=== PATIENT | male | born 1980 | race American Indian/Alaskan Native ===

== ENCOUNTER 2019-08-22 07:00 | Day surgery (SDC) | payer BC ==
[2019-08-22 07:59] LABS: Basophils % (Auto) 0.6 % (0.0-1.8); Eosinophils # (Auto) 0.4 K/mm3 (0.0-0.4); Eosinophils % (Auto) 5.7 % (0.0-4.3); Hematocrit 36.8 % (35.5-45.6); Hemoglobin 12.1 gm/dl (11.8-15.2); Lymphocytes # (Auto) 2.5 K/mm3 (1.2-5.4); Lymphocytes % (Auto) 40.1 % (13.4-35.0); Mean Corpuscular HGB Conc 33 % (32-34); Mean Corpuscular Volume 81 fl (84-94); Monocytes # (Auto) 0.6 K/mm3 (0.0-0.8); Monocytes % (Auto) 9.3 % (0.0-7.3); Platelet Count 244 K/mm3 (140-440); Red Blood Count 4.57 M/mm3 (3.65-5.03); Red Cell Distribution Width 15.3 % (13.2-15.2)
[2019-08-22 08:10] LABS: INR 1.21 (0.87-1.13)
[2019-08-22] MEDS: SODIUM CHLORIDE 0.9% 500 ML 500 ML IV SCH ×2 (08:10→08:53)
[2019-08-22 08:11] LABS: BUN/Creatinine Ratio 9; Blood Urea Nitrogen 8 mg/dL (9-20); Calcium 8.7 mg/dL (8.4-10.2); Hemolysis Index 9; Partial Thromboplastin Time 34.5 Sec. (24.2-36.6)
[2019-08-22] MEDS ORDERED: HEPARIN/NS 5000 UNIT/500ML 1,000 ML IR ONE (08:11)
[2019-08-22] MEDS ORDERED: NITROGLYCERIN SYRINGE 0 ML ONE (08:12)
[2019-08-22] MEDS ORDERED: SODIUM CHLORIDE 0.9% 500 ML 0 ML ONE (08:12)
[2019-08-22] MEDS: fentaNYL 100 MCG/2 ML INJ ONE ×6 (08:52→10:40)
[2019-08-22] MEDS: MIDAZOLAM 2 MG/2 ML INJ ONE ×8 (08:53→10:42)
[2019-08-22] MEDS: LIDOCAINE 1%/EPINEPHRINE 1:100,000 VIAL (20 ML) INFILTRATI ONE ×2 (08:53→09:03)
[2019-08-22] MEDS ORDERED: ONDANSETRON 4 MG/2 ML INJ ONE (09:14)
[2019-08-22] MEDS: HEPARIN 10,000 UNITS/10 ML VIAL ONE ×2 (09:20→10:16)
[2019-08-22] MEDS ORDERED: SODIUM CHLORIDE 0.9% 50 ML ONE (09:22)
[2019-08-22] MEDS ORDERED: WATER FOR INJ Sterile (PF) 20 ML ONE (09:22)
[2019-08-22] MEDS: ALTEPLASE 2 MG INJ ONE ×2 (09:29→09:42)
[2019-08-22] MEDS: HEPARIN/NS 5000 UNIT/500ML 500 ML IR ONE ×2 (09:30→09:42)
[2019-08-22] MEDS ORDERED: KETOROLAC 30 MG/1 ML INJ ONE (10:13)
[2019-08-22] MEDS ORDERED: diphenhydrAMINE 50 MG/ML VIAL ONE (10:30)
--- NOTE | 2019-08-22 10:56 | Short Stay Summary ---
Short Stay Documentation Date of service: 08/22/19 - History Principal diagnosis: Right venous thrombectomy/DVT H&P: obtained from office - Allergies and Medications Current Medications: Allergies No Known Allergies Allergy (Unverified 11/14/13 17:14) Home Medications Medication Instructions Recorded Confirmed Last Taken Type Cephalexin [Keflex] 500 mg PO BID #20 capsule 11/14/13 08/22/19 08/22/19 05:00 Rx Apixaban [Eliquis] 5 mg PO BID 08/22/19 08/22/19 08/22/19 05:00 History Montelukast [Singulair] 10 mg PO DAILY 08/22/19 08/22/19 08/22/19 05:00 History Oxycodone HCl/Acetaminophen 1 each PO Q6HR PRN 08/22/19 08/22/19 08/21/19 21:00 History [Percocet 7.5/325 mg] Active Medications Sodium Chloride (Nacl 0.9% 500 Ml) 500 mls @ 50 mls/hr IV DIRECT DAXA Last Admin: 08/22/19 08:53 Dose: 50 mls/hr Documented by: - Brief post op/procedure progress note Date of procedure: 08/22/19 Pre-op diagnosis: right iliofemoral DVT Post-op diagnosis: same Procedure: RLE thrombectomy IVC filter placement, stent placement Anesthesia: local Surgeon: HORACE STEEL Estimated blood loss: minimal Pathology: none Condition: stable - Disposition Condition at discharge: Good Disposition: DC-01 TO HOME OR SELFCARE Short Stay Discharge Plan Activity: advance as tolerated Weight Bearing Status: Weight Bear as Tolerated Diet: regular Wound: keep clean and dry, per your surgeon's advice Follow up with: ROMERO RIDDLE MD [Primary Care Provider] - 7 Days
--- NOTE | 2019-08-22 11:06 | Operative Report ---
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 Date: 08/22/2019 Procedure: Following an explanation of the risks, benefits and alternatives; written informed consent was obtained. The patient was brought to the anterior suite and placed in supine position on the examination table. Both groins in the patient's right neck were prepped and draped in the usual sterile fashion. Initial ultrasound evaluation of his right groin demonstrated a patent right common femoral vein. 1% lidocaine was used for anesthesia. Under ultrasound guidance, the right common femoral vein was cannulated with a 7 cm 18-gauge needle. A 0.035 guidewire was advanced centrally and to the proximal portion of the stent under fluoroscopy. The needle was removed and a micro-sheath placed. Contrast was injected through the micro-sheath to demonstrate the thrombus within the proximal and midportion of the previously placed stent. The guidewire was again reinserted and the micro-sheath exchanged for a 5 Israeli vascular sheath. A vertebral catheter was advanced over the guidewire and used to cannulate a path through the thrombus. The guidewire and catheter were advanced into the IVC. Contrast was injected to document appropriate positioning. The sheath was up sized over the guidewire to a 10 [place] sheath. Intravascular ultrasound was then performed. Imaged vessels include the IVC, right common iliac vein, right external iliac vein and right common femoral vein. The IVC is enlarged but appropriately sized for placement of a IVC filter. Thrombus is identified extending from the proximal end of the stent to the midportion of the stent. The stent previously placed maintains a diameter of approximately 14 mm throughout its course. The common femoral vein is patent. Pulse spray with 25 mg of tPA was followed by mechanical thrombectomy using AngioJet mechanical thrombectomy device. A total of 3 passes were made. Post thrombectomy imaging demonstrated resolution of the thrombus within the midportion of the stent. A patent channel is present into the IVC. Chronic appearing thrombus and narrowing secondary to the overlying artery are present within the proximal portion of the stent and barrow right common iliac vein. Balloon maceration was then performed using a 14 mm balloon. Following both balloon maceration and venoplasty of the stenotic area of right common iliac vein, a widely patent channel was identified into the IVC. Residual 60% stenosis remained however and a decision was made to place a stent across this lesion to maintain patency. The bifurcation was crossed using a C2 cobra catheter and contrast injected through both the sheath and the C2 cobra catheter simultaneously to identify the bifurcation. The bifurcation was marked. 16 mm x 120 mm [place] stent was advanced across the lesion and deployed. The stent was seated using the 14 mm balloon. Post stent placement imaging demonstrated brisk flow from the right common femoral vein into the IVC. The guidewires and sheaths were removed and hemostasis achieved using manual compression. A sterile compression dressing was applied. The patient tolerated the procedure well. There were no immediate postprocedure complications. Conscious sedation was performed in the guidance or radiologic nursing. Continuous cardiopulmonary monitoring was utilized. Impression:1) Venography of the right lower extremity from both the sheath and a catheter placed in the IVC, right common iliac vein, right external iliac vein and right common femoral vein demonstrating occlusion secondary to DVT of the mid and distal portions of a previously placed wall stent. There is approximately an 80% stenosis distal to the previously placed stent. 2) Mechanical and pharmacological thrombectomy with resolution of the thrombus but persistence of the stenosis of approximately 60% in the proximal right common iliac vein secondary to the overlying artery. 3) Treatment of the stenosis using venoplasty and stent placement with residual less than 10% stenosis.
[2019-08-22] MEDS ORDERED: oxyCODONE /ACETAMINOPHEN 5-325MG TAB PO ONE (11:26)
[2019-08-22 13:15] VITALS: BP 146/91
== END 2019-08-22 14:00 | disposition home or self-care (01) ==
LOC: CATHLABREC 07:00
PROVIDERS: ATTEND Radiology Diagnostic Radiology
DX: I82.511 Chronic embolism and thrombosis of right femoral vein (principal); I82.521 Chronic embolism and thrombosis of right iliac vein; G47.30 Sleep apnea, unspecified; M19.90 Unspecified osteoarthritis, unspecified site; Z98.890 Other specified postprocedural states; Z79.899 Other long term (current) drug therapy
CPT/HCPCS: 36415; 37187; 37191; 37238; 37252; 37253; 75820; 76937; 80048; 85025; 85610; 85730; 99156; 99157; C1725; C1753; C1757; C1769; C1876; C1880; C1894; J1200; J1644; J1885; J2250; J2405; J2997; J3010; J7040; 75822; Q9967

== ENCOUNTER 2020-04-02 07:24 | Inpatient (IN) | payer BC, OTHER ==
--- NOTE | 2020-04-02 09:43 | Vascular Lab Report ---
DUPLEX DOPPLER LOWER EXTREMITY VEINS, LEFT INDICATION: pain and swelling; hx of dvt. TECHNIQUE: Duplex doppler imaging was performed through the veins of the left lower extremity using venous compr ession and other maneuvers. COMPARISON: None available. FINDINGS: Common Femoral vein: Occlusive thrombus. Superficial Femoral vein: Occlusive thrombus. Popliteal vein: Occlusive thrombus. Calf veins: Occlusive thrombus. Additional findings: None. IMPRESSION: Acute appearing occlusive thrombus identified extending from the left common femoral vein through the deep veins of the thigh, popliteal vein and the posterior tibial vein. Signer Name: Chu Oneal MD Signed: 04/02/2020 9:38 AM Workstation Name: [id number]
[2020-04-02 09:58] LABS: Basophils % (Auto) 0.3 % (0.0-1.8); Eosinophils # (Auto) 0.3 K/mm3 (0.0-0.4); Eosinophils % (Auto) 5.4 % (0.0-4.3); Hematocrit 34.3 % (35.5-45.6); Hemoglobin 11.1 gm/dl (11.8-15.2); Lymphocytes # (Auto) 1.4 K/mm3 (1.2-5.4); Lymphocytes % (Auto) 23.1 % (13.4-35.0); Mean Corpuscular HGB Conc 32 % (32-34); Mean Corpuscular Volume 81 fl (84-94); Monocytes # (Auto) 0.5 K/mm3 (0.0-0.8); Monocytes % (Auto) 8.2 % (0.0-7.3); Platelet Count 232 K/mm3 (140-440); Red Blood Count 4.21 M/mm3 (3.65-5.03); Red Cell Distribution Width 15.7 % (13.2-15.2)
--- NOTE | 2020-04-02 10:02 | Emergency Department Report ---
ED General Adult HPI - General Chief complaint: Extremity Injury, Lower Stated complaint: LEFT LEG PAIN & SWELLING Time Seen by Provider: 04/02/20 08:41 Source: patient Mode of arrival: Ambulatory Limitations: No Limitations - History of Present Illness Initial comments: 39-year-old -English male patient presents with complaints of left thigh swelling and pain x5 days. Patient has history of for previous DVTs in his right leg and currently has a right IVC filter. Patient states he had a fall 10 days ago and was seen in an ED. He states at that time he did not have any pain in his left leg, however he has been doing a great deal of laying down and not walking due to having pain in his back. Patient currently follows with Dr. Jay, vascular surgery. He denies any chest pain, shortness of breath, cough, syncopal episodes, dizziness, history of PE, or redness to the leg. He rates his current pain as a 9/10 in severity and states it is constant and worsens with ambulation. Patient states he is currently on Eliquis and has prev iously been on Xarelto. - Related Data Home Medications Medication Instructions Recorded Confirmed Last Taken Apixaban [Eliquis] 5 mg PO BID 08/22/19 04/02/20 04/02/20 06:30 5 mg Metformin HCl [metFORMIN ER 1,000 mg PO DAILY 04/02/20 04/02/20 03/30/20 Osmotic] 1000 mg traMADoL [Ultram] 50 mg PO BID PRN 04/02/20 04/02/20 03/19/20 50 mg Previous Rx's Medication Instructions Recorded Last Taken Type Cephalexin [Keflex] 500 mg PO BID #20 capsule 11/14/13 04/02/20 06:30 Rx 500 mg Allergies Allergy/AdvReac Type Severity Reaction Status Date / Time No Known Allergies Allergy Unverified 11/14/13 17:14 ED Review of Systems ROS: Stated complaint: LEFT LEG PAIN & SWELLING Other details as noted in HPI Constitutional: denies: chills, diaphoresis, fever, malaise, weakness Eyes: denies: vision change Respiratory: denies: cough, shortness of breath, SOB with exertion, SOB at rest Cardiovascular: edema. denies: chest pain, palpitations, syncope Gastrointestinal: denies: abdominal pain Skin: denies: rash, lesions Neurological: denies: numbness ED Past Medical Hx - Past Medical History Previous Medical History?: Yes Hx Deep Vein Thrombosis: Yes Hx Arthritis: Yes (back and left hip) Hx HIV: No - Surgical History Past Surgical History?: Yes Additional Surgical History: back surgeries. DVT R leg x 2 - Social History Smoking Status: Never Smoker Substance Use Type: None - Medications Home Medications: Home Medications Medication Instructions Recorded Confirmed Last Taken Type Cephalexin [Keflex] 500 mg PO BID #20 capsule 11/14/13 04/02/20 04/02/20 06:30 Rx 500 mg Apixaban [Eliquis] 5 mg PO BID 08/22/19 04/02/20 04/02/20 06:30 History 5 mg Metformin HCl [metFORMIN ER 1,000 mg PO DAILY 04/02/20 04/02/20 03/30/20 History Osmotic] 1000 mg traMADoL [Ultram] 50 mg PO BID PRN 04/02/20 04/02/20 03/19/20 History 50 mg ED Physical Exam - General Limitations: No Limitations General appearance: alert, in no apparent distress, obese - Head Head exam: Present: atraumatic, normocephalic - Eye Eye exam: Present: normal appearance. Absent: scleral icterus - Neck Neck exam: Present: normal inspection - Respiratory Respiratory exam: Present: normal lung sounds bilaterally. Absent: respiratory distress - Cardiovascular Cardiovascular Exam: Present: regular rate, normal rhythm. Absent: systolic murmur, diastolic murmur, rubs, gallop - GI/Abdominal GI/Abdominal exam: Present: soft. Absent: tenderness - Extremities Exam Extremities exam: Present: full ROM, tenderness (Swelling and tenderness noted to left thigh and left lower leg without overlying erythema) - Back Exam Back exam: Present: full ROM - Neurological Exam Neurological exam: Present: alert, oriented X3 - Psychiatric Psychiatric exam: Present: normal affect, normal mood - Skin Skin exam: Present: warm, dry, intact, normal color. Absent: rash ED Course Vital Signs 04/02/20 04/02/20 04/02/20 07:30 09:57 12:08 Temperature 97.8 F 98.0 F Pulse Rate 111 H 89 82 Respiratory 17 16 Rate Blood Pressure 149/92 Blood Pressure 123/87 [Left] O2 Sat by Pulse 100 100 98 Oximetry 04/02/20 04/02/20 04/02/20 14:00 14:15 14:30 Temperature 97.5 F L Pulse Rate 89 87 82 Respiratory 14 18 18 Rate Blood Pressure 144/87 131/72 140/82 Blood Pressure [Left] O2 Sat by Pulse 100 96 99 Oximetry 04/02/20 14:45 Temperature Pulse Rate 96 H Respiratory 19 Rate Blood Pressure 135/75 Blood Pressure [Left] O2 Sat by Pulse 99 Oximetry ED Medical Decision Making - Lab Data Result diagrams: 04/02/20 11:28 04/02/20 11:28 Lab Results 04/02/20 04/02/20 04/02/20 Range/Units 09:43 09:43 09:43 WBC 6.1 (4.5-11.0) K/mm3 RBC 4.21 (3.65-5.03) M/mm3 Hgb 11.1 L (11.8-15.2) gm/dl Hct 34.3 L (35.5-45.6) % MCV 81 L (84-94) fl MCH 26 L (28-32) pg MCHC 32 (32-34) % RDW 15.7 H (13.2-15.2) % Plt Count 232 (140-440) K/mm3 Lymph % (Auto) 23.1 (13.4-35.0) % [place] % (Auto) 8.2 H (0.0-7.3) % Eos % (Auto) 5.4 H (0.0-4.3) % Baso % (Auto) 0.3 (0.0-1.8) % Lymph # 1.4 (1.2-5.4) K/mm3 [place] # 0.5 (0.0-0.8) K/mm3 Eos # 0.3 (0.0-0.4) K/mm3 Baso # 0.0 (0.0-0.1) K/mm3 Seg Neutrophils % 63.0 (40.0-70.0) % Seg Neutrophils # 3.9 (1.8-7.7) K/mm3 PT 17.2 H (12.2-14.9) Sec. INR 1.37 H (0.87-1.13) APTT 32.2 (24.2-36.6) Sec. Fibrinogen (211-480) mg/dl Sodium 137 (137-145) mmol/L Potassium 4.7 (3.6-5.0) mmol/L Chloride 101.7 (98-107) mmol/L Carbon Dioxide 22 (22-30) mmol/L Anion Gap 18 mmol/L BUN 17 (9-20) mg/dL Creatinine 1.0 (0.8-1.3) mg/dL Estimated GFR > 60 ml/min BUN/Creatinine Ratio 17 % Glucose 131 H (75-100) mg/dL Calcium 9.0 (8.4-10.2) mg/dL Total Bilirubin 0.40 (0.1-1.2) mg/dL AST 35 (5-40) units/L ALT 25 (7-56) units/L Alkaline Phosphatase 97 (35-129) units/L Total Protein 7.7 (6.3-8.2) g/dL Albumin 3.7 L (3.9-5) g/dL Albumin/Globulin Ratio 0.9 % Urine Color (Yellow) Urine Turbidity (Clear) Urine pH (5.0-7.0) Ur Specific [place] (1.003-1.030) Urine Protein (Negative) mg/dL Urine Glucose (UA) (Negative) mg/dL Urine Ketones (Negative) mg/dL Urine Blood (Negative) Urine Nitrite (Negative) Urine Bilirubin (Negative) Urine Urobilinogen (<2.0) mg/dL Ur Leukocyte Esterase (Negative) Urine WBC (Auto) (0.0-6.0) /HPF Urine RBC (Auto) (0.0-6.0) /HPF U Epithel Cells (Auto) (0-13.0) /HPF Urine Mucus /HPF 04/02/20 04/02/20 04/02/20 Range/Units 10:00 11:28 11:28 WBC 5.7 (4.5-11.0) K/mm3 RBC 4.20 (3.65-5.03) M/mm3 Hgb 10.9 L (11.8-15.2) gm/dl Hct 34.1 L (35.5-45.6) % MCV 81 L (84-94) fl MCH 26 L (28-32) pg MCHC 32 (32-34) % RDW 15.5 H (13.2-15.2) % Plt Count 236 (140-440) K/mm3 Lymph % (Auto) 26.1 (13.4-35.0) % [place] % (Auto) 7.2 (0.0-7.3) % Eos % (Auto) 5.7 H (0.0-4.3) % Baso % (Auto) 0.4 (0.0-1.8) % Lymph # 1.5 (1.2-5.4) K/mm3 [place] # 0.4 (0.0-0.8) K/mm3 Eos # 0.3 (0.0-0.4) K/mm3 Baso # 0.0 (0.0-0.1) K/mm3 Seg Neutrophils % 60.6 (40.0-70.0) % Seg Neutrophils # 3.4 (1.8-7.7) K/mm3 PT (12.2-14.9) Sec. INR (0.87-1.13) APTT (24.2-36.6) Sec. Fibrinogen 422 (211-480) mg/dl Sodium (137-145) mmol/L Potassium (3.6-5.0) mmol/L Chloride (98-107) mmol/L Carbon Dioxide (22-30) mmol/L Anion Gap mmol/L BUN (9-20) mg/dL Creatinine (0.8-1.3) mg/dL Estimated GFR ml/min BUN/Creatinine Ratio % Glucose (75-100) mg/dL Calcium (8.4-10.2) mg/dL Total Bilirubin (0.1-1.2) mg/dL AST (5-40) units/L ALT (7-56) units/L Alkaline Phosphatase (35-129) units/L Total Protein (6.3-8.2) g/dL Albumin (3.9-5) g/dL Albumin/Globulin Ratio % Urine Color Yellow (Yellow) Urine Turbidity Clear (Clear) Urine pH 5.0 (5.0-7.0) Ur Specific [place] 1.040 H (1.003-1.030) Urine Protein 30 mg/dl (Negative) mg/dL Urine Glucose (UA) Neg (Negative) mg/dL Urine Ketones Neg (Negative) mg/dL Urine Blood Neg (Negative) Urine Nitrite Neg (Negative) Urine Bilirubin Neg (Negative) Urine Urobilinogen 2.0 (<2.0) mg/dL Ur Leukocyte Esterase Neg (Negative) Urine WBC (Auto) 2.0 (0.0-6.0) /HPF Urine RBC (Auto) 3.0 (0.0-6.0) /HPF U Epithel Cells (Auto) < 1.0 (0-13.0) /HPF Urine Mucus 3+ /HPF 04/02/20 04/02/20 Range/Units 11:28 11:28 WBC (4.5-11.0) K/mm3 RBC (3.65-5.03) M/mm3 Hgb (11.8-15.2) gm/dl Hct (35.5-45.6) % MCV (84-94) fl MCH (28-32) pg MCHC (32-34) % RDW (13.2-15.2) % Plt Count (140-440) K/mm3 Lymph % (Auto) (13.4-35.0) % [place] % (Auto) (0.0-7.3) % Eos % (Auto) (0.0-4.3) % Baso % (Auto) (0.0-1.8) % Lymph # (1.2-5.4) K/mm3 [place] # (0.0-0.8) K/mm3 Eos # (0.0-0.4) K/mm3 Baso # (0.0-0.1) K/mm3 Seg Neutrophils % (40.0-70.0) % Seg Neutrophils # (1.8-7.7) K/mm3 PT 17.6 H (12.2-14.9) Sec. INR 1.42 H (0.87-1.13) APTT 32.7 (24.2-36.6) Sec. Fibrinogen (211-480) mg/dl Sodium 137 (137-145) mmol/L Potassium 4.4 (3.6-5.0) mmol/L Chloride 101.6 (98-107) mmol/L Carbon Dioxide 24 (22-30) mmol/L Anion Gap 16 mmol/L BUN 16 (9-20) mg/dL Creatinine 0.9 (0.8-1.3) mg/dL Estimated GFR > 60 ml/min BUN/Creatinine Ratio 18 % Glucose 115 H (75-100) mg/dL Calcium 8.8 (8.4-10.2) mg/dL Total Bilirubin (0.1-1.2) mg/dL AST (5-40) units/L ALT (7-56) units/L Alkaline Phosphatase (35-129) units/L Total Protein (6.3-8.2) g/dL Albumin (3.9-5) g/dL Albumin/Globulin Ratio % Urine Color (Yellow) Urine Turbidity (Clear) Urine pH (5.0-7.0) Ur Specific [place] (1.003-1.030) Urine Protein (Negative) mg/dL Urine Glucose (UA) (Negative) mg/dL Urine Ketones (Negative) mg/dL Urine Blood (Negative) Urine Nitrite (Negative) Urine Bilirubin (Negative) Urine Urobilinogen (<2.0) mg/dL Ur Leukocyte Esterase (Negative) Urine WBC (Auto) (0.0-6.0) /HPF Urine RBC (Auto) (0.0-6.0) /HPF U Epithel Cells (Auto) (0-13.0) /HPF Urine Mucus /HPF - Radiology Data Radiology results: report reviewed DUPLEX DOPPLER LOWER EXTREMITY VEINS, LEFT INDICATION: pain and swelling; hx of dvt. TECHNIQUE: Duplex doppler imaging was performed through the veins of the left lower extremity using venous compression and other maneuvers. COMPARISON: None available. FINDINGS: Common Femoral vein: Occlusive thrombus. Superficial Femoral vein: Occlusive thrombus. Popliteal vein: Occlusive thrombus. Calf veins: Occlusive thrombus. Additional findings: None. IMPRESSION: Acute appearing occlusive thrombus identified extending from the left common femoral vein through the deep veins of the thigh, popliteal vein and the posterior tibial vein. - Medical Decision Making Patient here with left leg swelling and pain. History of 4 prior DVTs with a right IVC filter in place. Ultrasound showed occlusive DVT of the femoral, superficial femoral, popliteal, and calf veins. Consulted with patient's vascu lar surgeon, Dr. Jay-Heparin drip without bolus and admission to hospital. Initial heart rate noted to be 111, however patient denies any shortness of breath, cough, chest pain, syncopal episodes, dizziness, or history of PE. Heart rate in the 90s on repeat and oxygen saturation remains normal. Patient admitted to hospital medicine. Critical care attestation.: If time is entered above; I have spent that time in minutes in the direct care of this critically ill patient, excluding procedure time. ED Disposition Clinical Impression: Deep vein thrombosis (DVT) of left lower extremity Qualifiers: Affected thrombotic vein of extremity: femoral Chronicity: acute Qualified Code(s): I82.412 - Acute embolism and thrombosis of left femoral vein DVT, popliteal, acute Qualifiers: Laterality: left Qualified Code(s): I82.432 - Acute embolism and thrombosis of left popliteal vein Calf DVT (deep venous thrombosis) Qualifiers: Chronicity: acute Laterality: left Qualified Code(s): I82.4Z2 - Acute embolism and thrombosis of unspecified deep veins of left distal lower extremity Disposition: DC-01 TO HOME OR SELFCARE Is pt being admited?: No Condition: Stable
--- NOTE | 2020-04-02 10:05 | XRay Report ---
LEFT FEMUR 4 VIEW(S) INDICATION / CLINICAL INFORMATION: pain and swelling after fall COMPARISON: None available. FINDINGS: BONES / JOINT(S): Abnormal morphology of the acetabulum and femoral head suggesting congenital hip dy splasia. Advanced osteoarthritic changes are present. No definite cortical disruption or linear lucen cy to suggest acute fracture. No evidence of dislocation or significant effusion. SOFT TISSUES: No significant abnormality. ADDITIONAL FINDINGS: None. IMPRESSION: 1. 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 No acute fracture or dislocation. Signer Name: Luke Otto MD Signed: 04/02/2020 10:01 AM Workstation Name: [id number]
[2020-04-02 10:09] LABS: INR 1.37 (0.87-1.13)
[2020-04-02 10:10] LABS: Partial Thromboplastin Time 32.2 Sec. (24.2-36.6)
[2020-04-02 10:23] LABS: Alanine Aminotransferase 25 units/L (7-56); Albumin 3.7 g/dL (3.9-5); BUN/Creatinine Ratio 17; Blood Urea Nitrogen 17 mg/dL (9-20); Hemolysis Index 10
[2020-04-02 10:26] LABS: Bilirubin,Urine NEG (Negative); Blood,Urine NEG (Negative); Color,Urine Yellow (Yellow); Mucus,Urine 3+ /HPF
--- NOTE | 2020-04-02 10:44 | Consultation ---
History of Present Illness - Reason for Consult Consult date: 04/02/20 DVT left leg - History of Present Illness Patient with a history of multiple DVTs on the right leg who had previously undergone stenting at an outside facility pair. The patient developed recurrent DVT which resulted in a reconstruction of his right side. Currently, his right leg feels normal. The patient describes an episode of dehydration approximately 1 week ago followed by left leg pain. His left leg is swollen and painful to the touch. Ultrasound demonstrates extensive left iliofemoral DVT. Past History Past Medical History: DVT Medications and Allergies Allergies Allergy/AdvReac Type Severity Reaction Status Date / Time No Known Allergies Allergy Unverified 11/14/13 17:14 Home Medications Medication Instructions Recorded Confirmed Last Taken Type Cephalexin [Keflex] 500 mg PO BID #20 capsule 11/14/13 08/22/19 08/22/19 05:00 Rx Apixaban [Eliquis] 5 mg PO BID 08/22/19 08/22/19 08/22/19 05:00 History Montelukast [Singulair] 10 mg PO DAILY 08/22/19 08/22/19 08/22/19 05:00 History Oxycodone HCl/Acetaminophen 1 each PO Q6HR PRN 08/22/19 08/22/19 08/21/19 21:00 History [Percocet 7.5/325 mg] oxyCODONE /ACETAMINOPHEN [Percocet 1 tab PO Q6HR PRN #25 tablet 08/22/19 Unknown Rx 5/325] Review of Systems All systems: negative Exam - Constitutional Vitals: Temp Pulse Resp BP Pulse Ox 97.8 F 111 H 17 149/92 100 04/02/20 07:30 04/02/20 07:30 04/02/20 07:30 04/02/20 07:30 04/02/20 07:30 General appearance: Present: no acute distress - EENT Eyes: Present: EOM intact ENT: hearing intact - Neck Neck: Present: supple, normal ROM - Respiratory Respiratory effort: normal - Extremities Extremities: abnormal Extremity abnormal: edema - Abdominal General gastrointestinal: Present: deferred Male genitourinary: Present: deferred - Rectal Rectal Exam: deferred - Psychiatric Psychiatric: appropriate mood/affect, cooperative Results - Labs CBC & Chem 7: 04/02/20 09:43 04/02/20 09:43 Labs: Abnormal lab results 04/02/20 04/02/20 04/02/20 Range/Units 09:43 09:43 09:43 Hgb 11.1 L (11.8-15.2) gm/dl Hct 34.3 L (35.5-45.6) % MCV 81 L (84-94) fl MCH 26 L (28-32) pg RDW 15.7 H (13.2-15.2) % [place] % (Auto) 8.2 H (0.0-7.3) % Eos % (Auto) 5.4 H (0.0-4.3) % PT 17.2 H (12.2-14.9) Sec. INR 1.37 H (0.87-1.13) Glucose 131 H (75-100) mg/dL Albumin 3.7 L (3.9-5) g/dL Ur Specific [place] (1.003-1.030) 04/02/20 Range/Units 10:00 Hgb (11.8-15.2) gm/dl Hct (35.5-45.6) % MCV (84-94) fl MCH (28-32) pg RDW (13.2-15.2) % [place] % (Auto) (0.0-7.3) % Eos % (Auto) (0.0-4.3) % PT (12.2-14.9) Sec. INR (0.87-1.13) Glucose (75-100) mg/dL Albumin (3.9-5) g/dL Ur Specific [place] 1.040 H (1.003-1.030) - Imaging and Cardiology Venous US: image reviewed Assessment and Plan Patient will be brought to the [facility] for placement of an EKOS thrombolytics catheter from a left popliteal vein approach. He will need to be initiated on heparin drip.
[2020-04-02] MEDS ORDERED: MORPHINE 4 MG/1 ML INJ IV ONE ×2 (10:52→14:01)
[2020-04-02] MEDS ORDERED: ONDANSETRON 4 MG/2 ML INJ IV ONE (10:52)
[2020-04-02] MEDS ORDERED: HEPARIN/ 0.45% NACL DRIP 25,000 UNIT/500 ML BAG IV SCH (11:00)
[2020-04-02] MEDS ORDERED: HYDROcodone/ACETAMINOPHEN 5-325 MG TAB PO PRN (11:11)
[2020-04-02] MEDS ORDERED: ONDANSETRON 4 MG/2 ML INJ IV PRN (11:11)
[2020-04-02] MEDS ORDERED: MORPHINE 2 MG/1 ML INJ IV PRN (11:11)
[2020-04-02] MEDS ORDERED: SODIUM CHLORIDE 0.9% 1000 ML 1,000 ML IV SCH (11:15)
[2020-04-02] MEDS ORDERED: SODIUM CHLORIDE 0.9% 1000 ML 1,000 ML EKOSCLUMEN SCH (11:15)
[2020-04-02] MEDS ORDERED: SODIUM CHLORIDE 0.9% 1000 ML 1,000 ML SHEATH SCH (11:15)
[2020-04-02 11:49] LABS: Basophils % (Auto) 0.4 % (0.0-1.8); Eosinophils # (Auto) 0.3 K/mm3 (0.0-0.4); Eosinophils % (Auto) 5.7 % (0.0-4.3); Hematocrit 34.1 % (35.5-45.6); Hemoglobin 10.9 gm/dl (11.8-15.2); Lymphocytes # (Auto) 1.5 K/mm3 (1.2-5.4); Lymphocytes % (Auto) 26.1 % (13.4-35.0); Mean Corpuscular HGB Conc 32 % (32-34); Mean Corpuscular Volume 81 fl (84-94); Monocytes # (Auto) 0.4 K/mm3 (0.0-0.8); Monocytes % (Auto) 7.2 % (0.0-7.3); Platelet Count 236 K/mm3 (140-440); Red Cell Distribution Width 15.5 % (13.2-15.2)
[2020-04-02] MEDS ORDERED: ALTEPLASE 20 MG in SODIUM CHLORIDE 0.9% 500 ML 500 ML EKOSDLUMEN SCH (12:00)
[2020-04-02] MEDS ORDERED: HEPARIN/ 0.45% NACL DRIP 25,000 UNIT/500 ML BAG SHEATH SCH (12:00)
[2020-04-02 12:01] LABS: INR 1.42 (0.87-1.13)
[2020-04-02 12:02] LABS: Partial Thromboplastin Time 32.7 Sec. (24.2-36.6)
[2020-04-02 12:04] LABS: BUN/Creatinine Ratio 18; Blood Urea Nitrogen 16 mg/dL (9-20); Calcium 8.8 mg/dL (8.4-10.2); Hemolysis Index 6
[2020-04-02] MEDS ORDERED: MIDAZOLAM 2 MG/2 ML INJ ONE (12:14)
[2020-04-02] MEDS ORDERED: fentaNYL 100 MCG/2 ML INJ ONE (12:14)
[2020-04-02] MEDS ORDERED: HEPARIN/ 0.45% NACL DRIP 0 UNIT/0 ML BAG ONE (12:15)
[2020-04-02] MEDS ORDERED: HEPARIN 10,000 UNITS/10 ML VIAL ONE (12:16)
[2020-04-02] MEDS ORDERED: SODIUM CHLORIDE 0.9% 1000 ML 1,000 ML ONE (12:16)
[2020-04-02] MEDS ORDERED: WATER FOR INJ Sterile (PF) 10 ML ONE (12:16)
[2020-04-02] MEDS ORDERED: LIDOCAINE (2%) 20 MG/1 ML VIAL 20 ML MDV INFILTRATI ONE (12:16)
[2020-04-02] MEDS ORDERED: ALTEPLASE 2 MG INJ ONE (12:16)
[2020-04-02] MEDS ORDERED: HEPARIN/NS 5000 UNIT/500ML 1,000 ML IR ONE (12:16)
[2020-04-02] MEDS ORDERED: oxyCODONE /ACETAMINOPHEN 5-325MG TAB PO PRN (12:53)
--- NOTE | 2020-04-02 12:54 | History and Physical Report ---
History of Present Illness Chief complaint: My leg is swollen History of present illness: 39 YO Male with Morbid Obesity, Obesity Hypoventilation Syndrome, DVT S/P IVC filter Placement currently on therapeutic anticoagulation with LINA Mcdonald DJD presents to ED for evaluation. Patient states that he has experienced worsening swelling and pain in his left leg over the past 5 days with persistently worsening symptoms over the same timeframe. Patient transported to [facility] for further care and evaluation of the aforementioned symptoms. Patient seen and evaluated in the emergency department. Lab and imaging studies reviewed. Patient underwent bilateral lower extremity duplex and was found to have extensive left leg deep vein thrombosis. Vascular surgery consulted. Patient taken urgently to [facility] [employer] [facility] for surgical intervention. Patient was found to have extensive disease which was not amenable to lytic therapy. Patient is pending transfer to higher level of care for further surgical intervention. Patient initiated on anticoagulation and admitted to ICU as per vascular surgery request. Patient denies fever, chills, chest pain, palpitations, productive cough, recent ill contacts. No prior admission for review. All medication at the time of admission has been reconciled. Patient transferred to [facility] has been authorized however patient is awaiting bed authorization at this time. Past History Past Medical History: DVT (See HPI), other (See HPI) Past Surgical History: Other (IVC filter placement) Social history: . denies: smoking, alcohol abuse, prescription drug abuse Family history: diabetes, hypertension Medications and Allergies Allergies Allergy/AdvReac Type Severity Reaction Status Date / Time No Known Allergies Allergy Unverified 11/14/13 17:14 Home Medications Medication Instructions Recorded Confirmed Last Taken Type Cephalexin [Keflex] 500 mg PO BID #20 capsule 11/14/13 04/02/20 04/02/20 06:30 Rx 500 mg Apixaban [Eliquis] 5 mg PO BID 08/22/19 04/02/20 04/02/20 06:30 History 5 mg Metformin HCl [metFORMIN ER 1,000 mg PO DAILY 04/02/20 04/02/20 03/30/20 History Osmotic] 1000 mg traMADoL [Ultram] 50 mg PO BID PRN 04/02/20 04/02/20 03/19/20 History 50 mg Active Meds: Active Medications Acetaminophen/Hydrocodone Bitart ([place] 5/325) 2 each PO Q6H PRN PRN Reason: Pain, Moderate (4-6) Sodium Chloride (Nacl 0.9% 1000 Ml) 1,000 mls @ 30 mls/hr IV DIRECT DAXA Alteplase, Recombinant 20 mg/ (Sodium Chloride) 500 mls @ 25 mls/hr EKOSDLUMEN DIRECT DAXA Sodium Chloride (Nacl 0.9% 1000 Ml) 1,000 mls @ 30 mls/hr SHEATH DIRECT DAXA Sodium Chloride (Nacl 0.9% 1000 Ml) 1,000 mls @ 35 mls/hr EKOSCLUMEN DIRECT DAXA Heparin Sodium/Sodium Chloride (Heparin/ 0.45% Nacl-25,000 Unit/500 Ml) 25,000 unit in 500 mls @ 10 mls/hr SHEATH DIRECT DAXA; Protocol Morphine Sulfate (Morphine) 4 mg IV Q4H PRN PRN Reason: Pain , Severe (7-10) Morphine Sulfate (Morphine) 2 mg IV Q4H PRN PRN Reason: Pain, Moderate (4-6) Ondansetron HCl (Zofran) 4 mg IV Q8H PRN PRN Reason: Nausea And Vomiting Review of Systems Constitutional: no weight loss, no weight gain, no fever, no chills Ears, nose, mouth and throat: no ear pain, no ear discharge, no tinnitis, no nose pain, no nasal congestion Cardiovascular: no chest pain, no palpitations, no edema, no lightheadedness Respiratory: no cough, no cough with sputum, no excessive sputum, no shortness of breath Gastrointestinal: no abdominal pain, no nausea, no diarrhea Genitourinary Male: no hematuria, no flank pain, no discharge, no urinary frequency, no nocturia Musculoskeletal: other (Left leg pain and swelling), no neck stiffness, no neck pain, no arm numbness/tingling Integumentary: no rash, no pruritis, no redness, no wounds, no jaundice Neurological: no head injury, no weakness, no numbness, no tingling, no syncope Psychiatric: no anxiety, no sleep disturbances, no hypersomnia Endocrine: no heat intolerance, no excessive thirst, no polyuria Hematologic/Lymphatic: no easy bruising, no lymphadenopathy, no lymphedema Allergic/Immunologic: no urticaria Exam - Constitutional Vitals: Temp Pulse Resp BP Pulse Ox 98.0 F 82 16 123/87 98 04/02/20 12:08 04/02/20 12:08 04/02/20 12:08 04/02/20 12:08 04/02/20 12:08 General appearance: Present: mild distress - EENT Eyes: Present: PERRL ENT: hearing intact, clear oral mucosa - Neck Neck: Present: supple, normal ROM - Respiratory Respiratory effort: normal Respiratory: bilateral: CTA - Cardiovascular Heart Sounds: Present: S1 & S2. Absent: rub, click - Extremities Extremities: pulses symmetrical Extremity abnormal: edema Peripheral Pulses: within normal limits - Abdominal General gastrointestinal: Present: soft, non-tender, non-distended, normal bowel sounds Male genitourinary: Present: normal - Integumentary Integumentary: Present: clear, warm, dry - Musculoskeletal Musculoskeletal: gait normal, strength equal bilaterally - Psychiatric Psychiatric: appropriate mood/affect, intact judgment & insight - Neurologic Neurologic: CNII-XII intact, moves all extremities Results - Labs CBC & Chem 7: 04/02/20 11:28 04/02/20 11:28 Labs: Abnormal lab results 04/02/20 04/02/20 04/02/20 Range/Units 09:43 09:43 09:43 Hgb 11.1 L (11.8-15.2) gm/dl Hct 34.3 L (35.5-45.6) % MCV 81 L (84-94) fl MCH 26 L (28-32) pg RDW 15.7 H (13.2-15.2) % [place] % (Auto) 8.2 H (0.0-7.3) % Eos % (Auto) 5.4 H (0.0-4.3) % PT 17.2 H (12.2-14.9) Sec. INR 1.37 H (0.87-1.13) Glucose 131 H (75-100) mg/dL Albumin 3.7 L (3.9-5) g/dL Ur Specific [place] (1.003-1.030) 04/02/20 04/02/20 04/02/20 Range/Units 10:00 11:28 11:28 Hgb 10.9 L (11.8-15.2) gm/dl Hct 34.1 L (35.5-45.6) % MCV 81 L (84-94) fl MCH 26 L (28-32) pg RDW 15.5 H (13.2-15.2) % [place] % (Auto) (0.0-7.3) % Eos % (Auto) 5.7 H (0.0-4.3) % PT 17.6 H (12.2-14.9) Sec. INR 1.42 H (0.87-1.13) Glucose (75-100) mg/dL Albumin (3.9-5) g/dL Ur Specific [place] 1.040 H (1.003-1.030) 04/02/20 Range/Units 11:28 Hgb (11.8-15.2) gm/dl Hct (35.5-45.6) % MCV (84-94) fl MCH (28-32) pg RDW (13.2-15.2) % [place] % (Auto) (0.0-7.3) % Eos % (Auto) (0.0-4.3) % PT (12.2-14.9) Sec. INR (0.87-1.13) Glucose 115 H (75-100) mg/dL Albumin (3.9-5) g/dL Ur Specific [place] (1.003-1.030) Assessment and Plan - Patient Problems (1) DVT (deep venous thrombosis) Current Visit: Yes Status: Acute Qualifiers: Laterality: left Plan to address problem: Therapeutic anticoagulation, vascular surgery consulted, patient is pending transfer to [facility] for vascular surgical intervention. (2) Obesity hypoventilation syndrome Current Visit: Yes Status: Acute Plan to address problem: Supplemental oxygen, pulse oximetry, nebulizer therapy, noninvasive positive pressure ventilation as clinically indicated. (3) DVT prophylaxis Current Visit: Yes Status: Acute Plan to address problem: SCD to bilateral lower extremities while in bed, continue therapeutic anticoagulation
[2020-04-02] MEDS ORDERED: MORPHINE 4 MG/1 ML INJ ONE (14:01)
[2020-04-02] MEDS ORDERED: HEPARIN/ 0.45% NACL DRIP 25,000 UNIT/500 ML BAG ONE (14:15)
--- NOTE | 2020-04-02 14:17 | Operative Report ---
Operative Report Operative Report: Exam: Left lower extremity venogram, venogram of the IVC Clinical indication: Patient with a history of multiple prior DVTs who presents today with worsening left leg swelling. Ultrasound evaluation of his left leg demonstrates extensive DVT extending from the iliac veins into the posterior tibial vein. Date: 04/02/2020 Procedure: Following an explanation of the risks, benefits and alternatives; written informed consent was obtained. The patient was brought to the angiographic suite and placed in prone position on the examination table. Initial ultrasound evaluation of his popliteal fossa demonstrated compressibility of the popliteal vein. The patient's popliteal fossa on the left was prepped and draped in the usual sterile fashion. 1% lidocaine was used for anesthesia. Under ultrasound guidance, the left popliteal vein was cannulated with a 7 cm 18-gauge needle. A 0.035 guidewire was advanced centrally. The needle was removed and a 6 [place] sheath placed. Contrast was injected which demonstrates thrombus extending from the distal femoral vein proximally. A 4 [place] vertebral catheter was advanced over the guidewire. Together the guidewire and catheter were advanced centrally. Contrast was injected at multiple locations which demonstrates occlusive thrombus throughout the femoral vein, common femoral vein, external iliac vein and common iliac vein. The vertebral catheter and guidewire were then advanced into the IVC. Contrast was injected which demonstrates thrombus extending to the level of the filter. There is contrast staining above the filter. The catheter and guidewire were then advanced through the filter to the right atrium. Contrast was injected as the catheter withdrawn. This demonstrates thrombus extending above the filter to approximately 4 cm below the right atrium. At the level of the renal veins, there appears to be inflow from the renal veins creating some mobility of the thrombus. At this point, the catheters and guidewires were removed. The sheath was removed and hemostasis achieved using manual compression. A sterile dressing was applied. The patient tolerated the procedure well. There were no immediate postprocedure complications. A minimal amount of conscious sedation was performed under the guidance of radiologic nursing. Continuous cardiopulmonary monitoring was utilized. Impression: Venogram of the IVC and left lower venogram demonstrating thrombus extending from 4 cm below the right atrium to the distal femoral vein. The thrombus in the IVC is above the level of the filter. Given the degree of thrombus, and the size of the patient's quileute IVC, would be unable to place a suprarenal IVC filter. Deferred placement of a thrombolytics catheter secondary to the mobility the thrombus and morbidity associated with migration. The patient will need to be transferred for higher level of care. Discussed this wi th patient and he is agreeable to transfer. At the conclusion of the procedure, the patient returned to his baseline condition complaining only of left leg pain and swelling.
--- NOTE | 2020-04-02 16:09 | Event Note ---
Date: 04/02/[address] Andres Vincent at [facility]. [facility] has no beds available for transfer. Spoke with Dr. Charli Hardy at [facility]. [facility] is willing to accept the patient in transfer however, is waiting on a bed to open. The patient was sent from [facility] to the ICU awaiting transfer. The patient will need to be transferred for higher level of care.
[2020-04-02] MEDS: MONTELUKAST 10 MG TAB PO SCH (19:04)
[2020-04-02] MEDS: MORPHINE 4 MG/1 ML INJ IV PRN (20:01)
[2020-04-02 22:32] LABS: INR 1.13 (0.87-1.13)
[2020-04-02 23:06] LABS: Partial Thromboplastin Time 99.3 Sec. (24.2-36.6)
[2020-04-03] MEDS: HEPARIN/ 0.45% NACL DRIP 25,000 UNIT/500 ML BAG IV SCH ×2 (00:07→12:38)
[2020-04-03] MEDS: MORPHINE 4 MG/1 ML INJ IV PRN ×3 (02:12→16:51)
--- NOTE | 2020-04-03 12:20 | Consultation ---
History of Present Illness Consult date: 04/03/20 Requesting physician: FRANCHESCA HOWE Reason for consult: other (VTE with extensive DVT's) History of present illness: PULMONARY/CCM CONSULT NOTE (Full dictation # [id number]) Please see dictated notes for full details Past History Past Medical History: DVT (See HPI), other (See HPI) Past Surgical History: Other (IVC filter placement) Social history: . denies: smoking, alcohol abuse, prescription drug abuse Family history: diabetes, hypertension Medications and Allergies Allergies Allergy/AdvReac Type Severity Reaction Status Date / Time No Known Allergies Allergy Unverified 11/14/13 17:14 Home Medications Medication Instructions Recorded Confirmed Last Taken Type Cephalexin [Keflex] 500 mg PO BID #20 capsule 11/14/13 04/02/20 04/02/20 06:30 Rx 500 mg Apixaban [Eliquis] 5 mg PO BID 08/22/19 04/02/20 04/02/20 06:30 History 5 mg Metformin HCl [metFORMIN ER 1,000 mg PO DAILY 04/02/20 04/02/20 03/30/20 History Osmotic] 1000 mg traMADoL [Ultram] 50 mg PO BID PRN 04/02/20 04/02/20 03/19/20 History 50 mg Active Meds: Active Medications Acetaminophen/Hydrocodone Bitart ([place] 5/325) 2 each PO Q6H PRN PRN Reason: Pain, Moderate (4-6) Last Admin: 04/02/20 17:03 Dose: 2 each Documented by: Sodium Chloride (Nacl 0.9% 1000 Ml) 1,000 mls @ 30 mls/hr IV DIRECT DAXA Last Admin: 04/03/20 10:32 Dose: 30 mls/hr Documented by: Heparin Sodium/Sodium Chloride (Heparin/ 0.45% Nacl-25,000 Unit/500 Ml) 25,000 unit in 500 mls @ 30 mls/hr IV TITR DAXA; Protocol Last Titration: 04/03/20 10:00 Dose: 0 units/hr, 0 mls/hr Documented by: Montelukast Sodium (Singulair) 10 mg PO QPM DAXA Last Admin: 04/02/20 19:04 Dose: 10 mg Documented by: Morphine Sulfate (Morphine) 4 mg IV Q4H PRN PRN Reason: Pain , Severe (7-10) Last Admin: 04/03/20 08:40 Dose: 4 mg Documented by: Morphine Sulfate (Morphine) 2 mg IV Q4H PRN PRN Reason: Pain, Moderate (4-6) Ondansetron HCl (Zofran) 4 mg IV Q8H PRN PRN Reason: Nausea And Vomiting Oxycodone/Acetaminophen (Percocet 5/325) 1 tab PO Q6HR PRN PRN Reason: PAIN Sodium Chloride (Sodium Chloride Flush Syringe 10 Ml) 10 ml IV BID DAXA Last Admin: 04/03/20 00:12 Dose: 10 ml Documented by: Sodium Chloride (Sodium Chloride Flush Syringe 10 Ml) 10 ml IV PRN PRN PRN Reason: LINE FLUSH Physical Examination Vital signs: Vital Signs Temp Pulse Resp BP Pulse Ox 97.8 F 111 H 17 149/92 100 04/02/20 07:30 04/02/20 07:30 04/02/20 07:30 04/02/20 07:30 04/02/20 07:30 Results - Laboratory Findings CBC and BMP: 04/02/20 11:28 04/02/20 11:28 PT/INR, D-dimer PT 14.7 Sec. (12.2-14.9) 04/02/20 21:07 INR 1.13 (0.87-1.13) 04/02/20 21:07 Abnormal lab findings: Abnormal Labs 04/02/20 04/02/20 04/02/20 09:43 09:43 09:43 Hgb 11.1 L Hct 34.3 L MCV 81 L MCH 26 L RDW 15.7 H [place] % (Auto) 8.2 H Eos % (Auto) 5.4 H PT 17.2 H INR 1.37 H APTT Heparin Anti-Xa Level Glucose 131 H Albumin 3.7 L Ur Specific [place] 04/02/20 04/02/20 04/02/20 10:00 11:28 11:28 Hgb 10.9 L Hct 34.1 L MCV 81 L MCH 26 L RDW 15.5 H [place] % (Auto) Eos % (Auto) 5.7 H PT 17.6 H INR 1.42 H APTT Heparin Anti-Xa Level Glucose Albumin Ur Specific [place] 1.040 H 04/02/20 04/02/20 04/02/20 11:28 21:07 21:07 Hgb Hct MCV MCH RDW [place] % (Auto) Eos % (Auto) PT INR APTT 99.3 H* Heparin Anti-Xa Level 1.53 H Glucose 115 H Albumin Ur Specific [place] 04/03/20 07:59 Hgb Hct MCV MCH RDW [place] % (Auto) Eos % (Auto) PT INR APTT Heparin Anti-Xa Level 0.97 H Glucose Albumin Ur Specific [place]
--- NOTE | 2020-04-03 14:58 | Consultation ---
PULMONARY CRITICAL CARE CONSULTATION NOTE CONSULTING PHYSICIAN: Dr. Rosendo Escamilla. REASON FOR CONSULTATION: Extensive venous thromboembolic disorder, status post unsuccessful thrombolytic therapy and needing transfer to a higher level of care. CHIEF COMPLAINT AND HISTORY OF PRESENT ILLNESS: The patient is a 39-year-old male, morbidly obese. He has been dealing with venous thromboembolic disease for the past few years he tells me. He had an IVC filter placed about a year ago. He came in to the emergency room after he had been found to have increasing swelling of his left leg as well as pain over the preceding 5 days. He is on therapeutic anticoagulation with Eliquis and has been compliant with his medication. He got bilateral lower extremity Dopplers and was found to have extensive left leg deep venous thrombosis, which were new. Vascular Surgery took the patient to the flue dust laborer for surgical intervention. However, he had extensive disease, not amenable to lytic therapy and he was brought back to the Intensive Care Unit on therapeutic IV heparin with plans to transfer him to another outside hospital for a higher level of care. When I stopped by to see him, he was resting in bed, lying flat as directed. He denied chest pains. He denied cough or hemoptysis. He admits to history of obstructive sleep apnea and is compliant with use of his BiPAP machine. This really is as much of the history of presentation as I have. Now with regards to tobacco use or abuse, he denies. PAST MEDICAL HISTORY: Morbid obesity, obesity hypoventilation syndrome, obstructive sleep apnea and venous thromboembolic disease as well as osteoarthritis. PAST SURGICAL HISTORY: He has had an IVC filter placement. MEDICATIONS: He was on at the time I stopped by to see him were reviewed, pertinent medications include the following: Heparin was going at 1300 units per hour, I believe, Singulair 10 mg p.o. at bedtime, Percocet 5/325 one tablet p.o. q. 6 hours p.r.n. pain. ALLERGIES: No known drug allergies. DIET: Morbidly obese. Denies acute weight loss or gain in the preceding few weeks to months. FAMILY AND SOCIAL HISTORY: Lives in the community. Denies alcohol, tobacco, or illicit drug use or abuse. There is a family history of diabetes and hypertension. REVIEW OF SYSTEMS: No loss of consciousness. No new onset seizures. No new onset focal weakness. No gross hematochezia or melena. No gross hematuria, no hematemesis. No hemoptysis. He denies palpitations. He denies heat or cold intolerance. Denies polydipsia or polyuria. Complete 13-system review of systems obtained. Pertinent positives and/or negatives as in body of history above, otherwise they are noncontributory. PHYSICAL EXAMINATION: VITAL SIGNS: At presentation, he was afebrile, temperature 97.8 degrees Fahrenheit, pulse of 111, respiratory rate of 17, blood pressure 149/92, O2 sats 100%. At the time I saw him, that was on room air. GENERAL: He is a young, morbidly obese male. Normocephalic, atraumatic, talking to me with full sentences without significant increased respiratory effort at rest. HEAD, EYES, EARS, NOSE AND THROAT: Anicteric. No conjunctival erythema. Oropharynx was moist. It looks like a Mallampati #3 oropharynx. No gross jugular venous distention, no thyromegaly. He does have a large neck circumference. Grossly, there were no palpable lymph nodes in the supraclavicular or submandibular lymph node chains. LUNGS: Auscultation of both lung humphreys significant for good bilateral air movement, lungs are clear bilaterally. HEART: Heart sounds 1 and 2 are heard at the time of my evaluation, regular rate and rhythm without overt rubs or murmurs. ABDOMEN: Soft, full, protuberant. Bowel sounds are positive, nontender, no palpable hepatosplenomegaly. EXTREMITIES: Without overt digital clubbing or cyanosis. He has about 1+ pedal edema to the right lower extremity and 2+ pitting pedal edema to the left lower extremity. Pedal pulses are 2+ bilaterally. The extremities are warm to touch. NEUROLOGIC: Pupils equal, round, about 4 mm, reactive to light. Extraocular muscle movements are intact. He moves all 4 extremities spontaneously. SKIN: Poor turgor in the lower extremities, in particular, he has stasis dermatitis type rash to both lower extremities. No overt cellulitis in the areas examined by me. Please see the wound care nurse's note for full description of his skin. PSYCHIATRIC: His mood was appropriate. Affect was normal. LABORATORY DATA: From my review are as follows: Admission white cell count 5700, hemoglobin 10.9, hematocrit 34.1, platelet count 236. No manual differential. INR 1.42 at presentation. Serum sodium was 137, potassium 4.4, chloride 102, bicarbonate 24, BUN 16, creatinine 0.9, glucose 115. Liver function tests essentially within normal limits. Urinalysis was unremarkable. Most recent heparin anti-Xa level is 0.97. He had lower extremity Dopplers as mentioned in the body of the history above that shows extensive left lower extremity DVT. He also had left femoral x-rays for pain and swelling after a fall, shows congenital hip dysplasia with advanced osteoarthritis changes, no acute fracture. ASSESSMENT: 1. Acute on chronic venous thromboembolic disorder with new extensive left lower extremity deep venous thromboses. 2. Obesity hypoventilation syndrome. 3. Obstructive sleep apnea. 4. Morbid obesity. 5. Obesity hypoventilation syndrome. 6. Osteoarthritis. PLAN: We will keep him on full anticoagulation with IV heparin drip. Calls have been placed to [facility] as well as [facility] system. I believe he is on a waiting list. Oxygen will be deployed as necessary to keep O2 sats greater than or equal to about 92%. Aspiration precautions will be maintained. Weight loss has been counseled. I will put him on empiric BiPAP therapy. I will go with 18/10 and a backup rate of 10. He is trying to call home to see what his CPAP numbers are at home. He is not sure if it is CPAP or BiPAP, especially with him being on full anticoagulation. I will put him on GI prophylaxis. Flu and pneumonia vaccination will be addressed per protocol. Thank you very much for the consult. We will follow along and make further recommendations as picture progresses/becomes clearer. JOB# [id number]/NTS
[2020-04-03] MEDS: MONTELUKAST 10 MG TAB PO SCH (17:03)
--- NOTE | 2020-04-03 17:10 | Discharge Summary ---
Providers - Providers Date of Admission: 04/02/20 12:50 Attending physician: FRANCHESCA HOWE 04/02/20 10:49 Consult to Physician [CONS] Stat Comment: Consulting Provider: HORACE STEEL Physician Instructions: Reason For Exam: DVT Primary care physician: ROMERO RIDDLE MD Hospitalization Condition: Stable Hospital course: 39 YO Male with Morbid Obesity, Obesity Hypoventilation Syndrome, DVT S/P IVC filter Placement currently on therapeutic anticoagulation with Eliquis, OA, DJD presented to ED for evaluation. Patient stated that he had experienced worsening swelling and pain in his left leg over the previous 5 days with persistently worsening symptoms over the same timeframe. Patient transported to [facility] for further care and evaluation of the aforementioned symptoms. Patient seen and evaluated in the emergency department. Lab and imaging studies reviewed. Patient underwent bilateral lower extremity duplex studies and was found to have extensive left leg deep vein thrombosis. Vascular surgery consulted. Patient taken urgently to [facility] for surgical intervention. Patient was found to have extensive disease which was not amenable to lytic therapy. Preparations for patient transfer to higher level of care was initiated by the interventional radiology service. Patient was subsequently initiated on anticoagulation and admitted to ICU as per vascular surgery request. Patient denied fever, chills, chest pain, palpitations, productive cough, recent ill contacts. Patient transfer to [facility] has been authorized and bed is available. Patient seen and evaluated prior to discharge but no significant new physical exam findings. Patient is deemed stable for transfer at this time. 35 minutes dedicated to patient discharge and coordination of care. Disposition: [id number]/[id number] ANOTHER TYPE HLTHCARE - Discharge Diagnoses (1) DVT (deep venous thrombosis) Status: Acute Qualifiers: Laterality: left (2) Obesity hypoventilation syndrome Status: Acute (3) DVT prophylaxis Status: Acute Core Measure Documentation - Palliative Care Palliative Care/ Comfort Measures: Not Applicable - Core Measures Any of the following diagnoses?: DVT/PE - VTE Discharge Requirements Deep Vein Thrombosis/Pulmonary Embolism Present on Admission: Yes Has pt received <5 days of overlap therapy or INR<2.0: No Anticoagulant overlap therapy prescribed at discharge: No Contraindication No Overlap Therapy order at DC: Not Indicated (Patient on therapeutic anticoagulation at time of discharge. Patient discharged for surgical intervention) Exam - Constitutional Vitals: Temp Pulse Resp BP Pulse Ox 98.7 F 74 13 119/68 99 04/03/20 03:38 04/03/20 14:00 04/03/20 16:51 04/03/20 14:00 04/03/20 14:00 General appearance: Present: no acute distress, well-nourished - EENT Eyes: Present: PERRL ENT: hearing intact, clear oral mucosa - Neck Neck: Present: supple, normal ROM - Respiratory Respiratory effort: normal Respiratory: bilateral: CTA - Cardiovascular Heart Sounds: Present: S1 & S2. Absent: rub, click - Extremities Extremities: pulses symmetrical, No edema Extremity abnormal: edema Peripheral Pulses: within normal limits - Abdominal General gastrointestinal: Present: soft, non-tender, non-distended, normal bowel sounds Male genitourinary: Present: normal - Integumentary Integumentary: Present: clear, warm, dry - Musculoskeletal Musculoskeletal: gait normal, strength equal bilaterally - Psychiatric Psychiatric: appropriate mood/affect, intact judgment & insight - Neurologic Neurologic: CNII-XII intact, moves all extremities Plan Activity: advance as tolerated Diet: regular Follow up with: ROMERO RIDDLE MD [Primary Care Provider] - 3-5 Days
[2020-04-03 17:16] VITALS: BP 144/93
[2020-04-03] MEDS ORDERED: FAMOTIDINE 20 MG TAB PO SCH (22:00)
== END 2020-04-03 18:10 | disposition short-term general hospital (02) | DRG 300 ==
LOC: ED 07:24 → CC1 12:50
PROVIDERS: ADMIT Internal Medicine; ATTEND Internal Medicine
PROC: B5191ZZ Fluoroscopy of Inferior Vena Cava using Low Osmolar Contrast (ICD-10-PCS; principal; 2020-04-02)
PROC: B51C1ZZ Fluoroscopy of Left Lower Extremity Veins using Low Osmolar Contrast (ICD-10-PCS; 2020-04-02)
PROC: B54CZZA Ultrasonography of Left Lower Extremity Veins, Guidance (ICD-10-PCS; 2020-04-02)
DX: I82.422 Acute embolism and thrombosis of left iliac vein (principal); E66.2 Morbid (severe) obesity with alveolar hypoventilation; Z68.43 Body mass index [BMI] 50.0-59.9, adult; M19.90 Unspecified osteoarthritis, unspecified site; I82.4Z2 Acute embolism and thrombosis of unspecified deep veins of left distal lower extremity; I82.432 Acute embolism and thrombosis of left popliteal vein; I82.412 Acute embolism and thrombosis of left femoral vein; Z79.01 Long term (current) use of anticoagulants; Z82.49 Family history of ischemic heart disease and other diseases of the circulatory system; Z83.3 Family history of diabetes mellitus; Z79.899 Other long term (current) drug therapy
CPT/HCPCS: 36010; 36415; 75820; 75825; 76937; 80048; 80053; 81001; 85025; 85384; 85520; 85610; 85730; G0378; C1769; C1887; C1894; J1644; J2250; J2270; J2405; J2997; J3010; J7030; J7040; Q9967

== ENCOUNTER 2021-12-29 11:02 | Inpatient (IN) | payer OTHER ==
[2021-12-29] MEDS ORDERED: ONDANSETRON 4 MG/2 ML INJ IV ONE (14:15)
[2021-12-29] MEDS ORDERED: MORPHINE 4 MG/1 ML INJ IV ONE (14:15)
[2021-12-29 14:58] LABS: Basophils % (Auto) 0.6 % (0.0-1.8); Eosinophils # (Auto) 0.3 K/mm3 (0.0-0.4); Eosinophils % (Auto) 4.1 % (0.0-4.3); Hematocrit 35.2 % (35.5-45.6); Hemoglobin 11.1 gm/dl (11.8-15.2); Lymphocytes # (Auto) 1.4 K/mm3 (1.2-5.4); Lymphocytes % (Auto) 19.3 % (13.4-35.0); Mean Corpuscular HGB Conc 32 % (32-34); Mean Corpuscular Volume 78 fl (84-94); Monocytes # (Auto) 0.6 K/mm3 (0.0-0.8); Monocytes % (Auto) 8.3 % (0.0-7.3); Platelet Count 193 K/mm3 (140-440); Red Blood Count 4.53 M/mm3 (3.65-5.03); Red Cell Distribution Width 17.3 % (13.2-15.2)
[2021-12-29 15:07] LABS: INR 1.34 (0.87-1.13)
[2021-12-29 15:08] LABS: Partial Thromboplastin Time 32.3 Sec. (24.2-36.6)
--- NOTE | 2021-12-29 15:13 | XRay Report ---
CHEST 1 VIEW 12/29/2021 2:32 PM INDICATION / CLINICAL INFORMATION: Chest pain. COMPARISON: None available. FINDINGS: SUPPORT DEVICES: None. HEART / MEDIASTINUM: No significant abnormality. LUNGS / PLEURA: No significant pulmonary or pleural abnormality. No pneumothorax. ADDITIONAL FINDINGS: No significant additional findings. IMPRESSION: 1. No acute findings. Signer Name: Kaleb Trinh Jr, MD Signed: 12/29/2021 3:05 PM Workstation Name: [id number]
[2021-12-29 15:40] LABS: Alanine Aminotransferase 39 units/L (7-56); Albumin 3.9 g/dL (3.9-5); BUN/Creatinine Ratio 13; Blood Urea Nitrogen 10 mg/dL (9-20); Calcium 9.2 mg/dL (8.4-10.2); Hemolysis Index 2
--- NOTE | 2021-12-29 16:04 | Vascular Lab Report ---
DUPLEX DOPPLER LOWER EXTREMITY VEINS, BILATERAL INDICATION: DVT. TECHNIQUE: Duplex doppler imaging was performed through the veins of both lower extremities using ve nous compression and other maneuvers. COMPARISON: No relevant prior imaging study available. FINDINGS: Right Common femoral vein: Negative. Right Superficial femoral vein: Negative. Right Popliteal vein: Negative. Right Calf veins: Limited visualization due to bandaging. No obvious DVT.. Left Common femoral vein: Positive. Left Superficial femoral vein: Positive for DVT in the proximal femoral vein. The mid and distal femo ral vein is poorly visualized.. Left Popliteal vein: Positive. Left Calf veins: Positive. Additional findings: None. IMPRESSION: Positive for acute appearing DVTs throughout the left lower extremity as described. No evidence for DVT on the right side although there is limited visibility of the calf veins. Signer Name: Kaleb Trinh Jr, MD Signed: 12/29/2021 3:59 PM Workstation Name: [id number]
--- NOTE | 2021-12-29 16:50 | Cat Scan Report ---
CTA CHEST WITH CONTRAST INDICATION / CLINICAL INFORMATION: Chest pain; DVT. TECHNIQUE: Axial CT images were obtained through the chest after injection of 100 mL Omnipaque 350 IV contrast. 3 plane MIP and/or 3D reconstructions were produced. All CT scans at this location are per formed using CT dose reduction for ALARA by means of automated exposure control. COMPARISON: None available. FINDINGS: PULMONARY EMBOLUS: None. THORACIC AORTA: No significant abnormality. HEART: No significant abnormality. CORONARY ARTERY CALCIFICATION: Absent -- None. MEDIASTINUM / ERLIN: No significant abnormality. PLEURA: No pleural effusion. No pneumothorax. LUNGS: No acute air space or interstitial disease. ADDITIONAL FINDINGS: None. UPPER ABDOMEN: No acute findings. SKELETAL STRUCTURES: No significant osseous abnormality. IMPRESSION: 1. No CT evidence for pulmonary embolism. 2. No acute findings. Signer Name: Esequiel Cabral MD Signed: 12/29/2021 4:46 PM Workstation Name: [id number]
--- NOTE | 2021-12-29 17:38 | Emergency Department Report ---
ED General Adult HPI - General Chief complaint: Extremity Problem,Nontraumatic Stated complaint: BLOOD CLOT LEFT LEG/CP Time Seen by Provider: 12/29/21 13:50 Source: patient Mode of arrival: Ambulatory Limitations: No Limitations - History of Present Illness Initial comments: Patient presents with complaints of chest pain, left-sided, dull/pressure/tigh tness, non-radiating, 3/10, not worsened or relieved by anything. Endorses SOB, denies palpitations, diaphoresis. Reports leg swelling, pain in his L calf. Deniesw recent travel, immobilization, surgery, hospitalization, sex HRT use. Has a hx of DVTs in the past and takes warfarin. Had an US done that showed new DVT in his LLE. 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 Developed DVTs also in the paost while he was on xarelto and even eliquis. Severity scale (0 -10): 7 - Related Data Home Medications Medication Instructions Recorded Confirmed Last Taken Apixaban [Eliquis] 5 mg PO BID 08/22/19 04/02/20 04/02/20 06:30 5 mg Metformin HCl [metFORMIN ER 1,000 mg PO DAILY 04/02/20 04/02/20 03/30/20 Osmotic] 1000 mg traMADoL [Ultram] 50 mg PO BID PRN 04/02/20 04/02/20 03/19/20 50 mg Previous Rx's Medication Instructions Recorded Last Taken Type Cephalexin [Keflex] 500 mg PO BID #20 capsule 11/14/13 04/02/20 06:30 Rx 500 mg Allergies Allergy/AdvReac Type Severity Reaction Status Date / Time No Known Allergies Allergy Unverified 11/14/13 17:14 ED Review of Systems ROS: Stated complaint: BLOOD CLOT LEFT LEG/CP Other details as noted in HPI Comment: All other systems reviewed and negative Constitutional: denies: chills, fever ED Past Medical Hx - Past Medical History Hx Congestive Heart Failure: No Hx Diabetes: Yes (Pre-diabetes) Hx Deep Vein Thrombosis: Yes Hx Arthritis: Yes (back and left hip) Hx Asthma: No Hx COPD: No Hx HIV: No - Surgical History Additional Surgical History: back surgeries. DVT R leg x 2 - Social History Smoking Status: Never Smoker Substance Use Type: None - Medications Home Medications: Home Medications Medication Instructions Recorded Confirmed Last Taken Type Cephalexin [Keflex] 500 mg PO BID #20 capsule 11/14/13 04/02/20 04/02/20 06:30 Rx 500 mg Apixaban [Eliquis] 5 mg PO BID 08/22/19 04/02/20 04/02/20 06:30 History 5 mg Metformin HCl [metFORMIN ER 1,000 mg PO DAILY 04/02/20 04/02/20 03/30/20 History Osmotic] 1000 mg traMADoL [Ultram] 50 mg PO BID PRN 04/02/20 04/02/20 03/19/20 History 50 mg ED Physical Exam - General Limitations: No Limitations General appearance: alert, in no apparent distress - Head Head exam: Present: atraumatic, normocephalic - Eye Eye exam: Present: PERRL, EOMI - ENT ENT exam: Present: mucous membranes moist, other (airway patent) - Neck Neck exam: Present: other (supple; no JVD) - Respiratory Respiratory exam: Present: other (good air entry, nml I:E, CTAB, no use of CESARIO) - Cardiovascular Cardiovascular Exam: Present: regular rate. Absent: rubs, gallop - GI/Abdominal GI/Abdominal exam: Present: soft, normal bowel sounds. Absent: distended, tenderness - Extremities Exam Extremities exam: Present: other (3+ poorly pitting edema bilaterally; tender in L calf; wound dressings in R nelson) - Back Exam Back exam: Present: full ROM. Absent: tenderness - Neurological Exam Neurological exam: Present: alert, oriented X3, CN II-XII intact. Absent: motor sensory deficit - Skin Skin exam: Present: warm, normal color ED Course Vital Signs 12/29/21 12/29/21 11:09 14:44 Temperature 97.3 F L Pulse Rate 121 H Respiratory 18 16 Rate Blood Pressure 201/107 [Right] O2 Sat by Pulse 97 Oximetry ED Medical Decision Making - Lab Data Result diagrams: 12/29/21 14:31 12/29/21 14:31 Laboratory Tests 12/29/21 12/29/21 12/29/21 14:31 14:31 14:31 WBC 7.3 RBC 4.53 Hgb 11.1 L Hct 35.2 L MCV 78 L MCH 25 L MCHC 32 RDW 17.3 H Plt Count 193 Lymph % (Auto) 19.3 [place] % (Auto) 8.3 H Eos % (Auto) 4.1 Baso % (Auto) 0.6 Lymph # (Auto) 1.4 [place] # (Auto) 0.6 Eos # (Auto) 0.3 Baso # (Auto) 0.0 Seg Neutrophils % 67.7 Seg Neutrophils # 5.0 PT 18.2 H INR 1.34 H APTT 32.3 Sodium 139 Potassium 4.6 Chloride 101.1 Carbon Dioxide 24 Anion Gap 19 BUN 10 Creatinine 0.8 Estimated GFR > 60 BUN/Creatinine Ratio 13 Glucose 107 H Calcium 9.2 Total Bilirubin 0.30 AST 34 ALT 39 Alkaline Phosphatase 107 Troponin T < 0.010 Total Protein 7.9 Albumin 3.9 Albumin/Globulin Ratio 1.0 EKG: HR 96, SR, nml intervals, no significant ST changes in contiguous leads CXR: no acute cardiopulmonary process CTA chest: no PE or aortic dissection LE Doppler: L sided DVT - Medical Decision Making received argtroban gtt Critical care attestation.: If time is entered above; I have spent that time in minutes in the direct care of this critically ill patient, excluding procedure time. ED Disposition Clinical Impression: Chest pain, DVT (deep venous thrombosis), Subtherapeutic international n ormalized ratio (INR) Disposition: ADMITTED INPATIENT Is pt being admited?: Yes Does the pt Need Aspirin: No Condition: Stable Time of Disposition: 17:30 (Patient admitted to Dr. Mane. Sign out was given by me to the admitting physician. )
[2021-12-29] MEDS: ARGATROBAN 250 MG in SODIUM CHLORIDE 0.9% 250ML 247.5 ML IV SCH (18:52)
[2021-12-29] MEDS ORDERED: HYDROmorphone 0.5 MG/0.5 ML INJ IV PRN (21:54)
[2021-12-29] MEDS ORDERED: ACETAMINOPHEN 325 MG TAB PO PRN ×2 (22:00→22:30)
[2021-12-29] MEDS ORDERED: ONDANSETRON 4 MG/2 ML INJ IV PRN ×2 (22:00→22:30)
[2021-12-29] MEDS ORDERED: MORPHINE 4 MG/1 ML INJ IV PRN (22:01)
--- NOTE | 2021-12-29 22:06 | History and Physical Report ---
History of Present Illness Date of examination: 12/29/21 Date of admission: 12/29/2021 Chief complaint: Left lower extremity DVT History of present illness: 41-year-old -[place]ames[place] male with morbid obesity comes in for left lower extremity swelling and pain. Patient was diagnosed with left lower extremity DVT. Noncompliant with her medications. During my examination patient says that he is due for thrombectomy tomorrow by Dr. Jay and a stent. Hence pat ient being admitted on high-dose Lovenox and management management of deep vein thrombosis by Dr. Jay for thrombectomy and possible stenting. - Past Medical History --Congestive Heart Failure: No --Diabetes: Yes (Pre-diabetes) --Deep Vein Thrombosis: Yes --Arthritis: Yes (back and left hip) - Surgical History --Additional Surgical History: back surgeries. DVT R leg x 2 - Social History --Smoking Status: Never Smoker --Substance Use Type: None - Medications --Home Medications: Home Medications Medication Instructions Recorded Confirmed Last Taken Type Cephalexin [Keflex] 500 mg PO BID #20 capsule 11/14/13 04/02/20 04/02/20 06:30 Rx 500 mg Apixaban [Eliquis] 5 mg PO BID 08/22/19 04/02/20 04/02/20 06:30 History 5 mg Metformin HCl [metFORMIN ER 1,000 mg PO DAILY 04/02/20 04/02/20 03/30/20 History Osmotic] 1000 mg traMADoL [Ultram] 50 mg PO BID PRN 04/02/20 04/02/20 03/19/20 History 50 mg Review of Systems ROS: Stated complaint: BLOOD CLOT LEFT LEG/CP Other details as noted in HPI Comment: All other systems reviewed and negative Constitutional: denies: chills, fever Medications and Allergies Allergies Allergy/AdvReac Type Severity Reaction Status Date / Time No Known Allergies Allergy Unverified 11/14/13 17:14 Home Medications Medication Instructions Recorded Confirmed Last Taken Type Cephalexin [Keflex] 500 mg PO BID #20 capsule 11/14/13 04/02/20 04/02/20 06:30 Rx 500 mg Apixaban [Eliquis] 5 mg PO BID 08/22/19 04/02/20 04/02/20 06:30 History 5 mg Metformin HCl [metFORMIN ER 1,000 mg PO DAILY 04/02/20 04/02/20 03/30/20 History Osmotic] 1000 mg traMADoL [Ultram] 50 mg PO BID PRN 04/02/20 04/02/20 03/19/20 History 50 mg Active Meds: Active Medications Argatroban 250 mg/ Sodium (Chloride) 250 mls @ 10.886 mls/hr IV TITR DAXA; Protocol Last Admin: 12/29/21 18:52 Dose: 1 mcg/kg/min, 10.886 mls/hr Exam - Constitutional Vitals: Temp Pulse Resp BP Pulse Ox 97.3 F L 121 H 16 201/107 97 12/29/21 11:09 12/29/21 11:09 12/29/21 14:44 12/29/21 11:09 12/29/21 11:09 General appearance: Present: no acute distress, well-nourished - EENT Eyes: Present: PERRL ENT: hearing intact, clear oral mucosa - Neck Neck: Present: supple, normal ROM - Respiratory Respiratory effort: normal Respiratory: bilateral: CTA - Cardiovascular Heart rate: 78 Rhythm: regular Heart Sounds: Present: S1 & S2. Absent: rub, click - Extremities Extremities: no ischemia, pulses intact, pulses symmetrical, No edema Peripheral Pulses: within normal limits - Abdominal General gastrointestinal: Present: soft, non-tender, non-distended, normal bowel sounds Male genitourinary: Present: normal - Integumentary Integumentary: Present: clear, warm, dry - Musculoskeletal Musculoskeletal: gait normal, strength equal bilaterally - Psychiatric Psychiatric: appropriate mood/affect, intact judgment & insight - Neurologic Neurologic: CNII-XII intact, moves all extremities - Allied Health Allied health notes reviewed: nursing, case management HEART Score - HEART Score Troponin: Troponin T < 0.010 ng/mL (0.00-0.029) 12/29/21 14:31 Results - Labs CBC & Chem 7: 12/30/21 05:03 12/30/21 05:03 Labs: Laboratory Last Values WBC 7.3 K/mm3 (4.5-11.0) 12/29/21 14:31 RBC 4.53 M/mm3 (3.65-5.03) 12/29/21 14:31 Hgb 11.1 gm/dl (11.8-15.2) L 12/29/21 14:31 Hct 35.2 % (35.5-45.6) L 12/29/21 14:31 MCV 78 fl (84-94) L 12/29/21 14:31 MCH 25 pg (28-32) L 12/29/21 14:31 MCHC 32 % (32-34) 12/29/21 14:31 RDW 17.3 % (13.2-15.2) H 12/29/21 14:31 Plt Count 193 K/mm3 (140-440) 12/29/21 14:31 Lymph % (Auto) 19.3 % (13.4-35.0) 12/29/21 14:31 [place] % (Auto) 8.3 % (0.0-7.3) H 12/29/21 14: Eos % (Auto) 4.1 % (0.0-4.3) 12/29/21 14: Baso % (Auto) 0.6 % (0.0-1.8) 12/29/21 14: Lymph # (Auto) 1.4 K/mm3 (1.2-5.4) 12/29/21 14:31 [place] # (Auto) 0.6 K/mm3 (0.0-0.8) 12/29/21 14: Eos # (Auto) 0.3 K/mm3 (0.0-0.4) 12/29/21 14: Baso # (Auto) 0.0 K/mm3 (0.0-0.1) 12/29/21 14: Seg Neutrophils % 67.7 % (40.0-70.0) 12/29/21 14: Seg Neutrophils # 5.0 K/mm3 (1.8-7.7) 12/29/21 14:31 PT 18.2 Sec. (12.2-14.9) H 12/29/21 14:31 INR 1.34 (0.87-1.13) H 12/29/21 14:31 APTT 32.3 Sec. (24.2-36.6) 12/29/21 14:31 Sodium 139 mmol/L (137-145) 12/29/21 14:31 Potassium 4.6 mmol/L (3.6-5.0) 12/29/21 14:31 Chloride 101.1 mmol/L (98-107) 12/29/21 14:31 Carbon Dioxide 24 mmol/L (22-30) 12/29/21 14:31 Anion Gap 19 mmol/L 12/29/21 14:31 BUN 10 mg/dL (9-20) 12/29/21 14:31 Creatinine 0.8 mg/dL (0.8-1.3) 12/29/21 14:31 Estimated GFR > 60 ml/min 12/29/21 14:31 BUN/Creatinine Ratio 13 % 12/29/21 14:31 Glucose 107 mg/dL (75-100) H 12/29/21 14:31 Calcium 9.2 mg/dL (8.4-10.2) 12/29/21 14:31 Total Bilirubin 0.30 mg/dL (0.1-1.2) 12/29/21 14:31 AST 34 units/L (5-40) 12/29/21 14:31 ALT 39 units/L (7-56) 12/29/21 14:31 Alkaline Phosphatase 107 units/L (35-129) 12/29/21 14:31 Troponin T < 0.010 ng/mL (0.00-0.029) 12/29/21 14:31 Total Protein 7.9 g/dL (6.3-8.2) 12/29/21 14:31 Albumin 3.9 g/dL (3.9-5) 12/29/21 14:31 Albumin/Globulin Ratio 1.0 % 12/29/21 14:31 Assessment and Plan Advance Directives: Yes (Full code) VTE prophylaxis?: Chemical Plan of care discussed with patient/family: Yes - Patient Problems (1) DVT (deep venous thrombosis) Current Visit: Yes Status: Acute Qualifiers: DVT location: lower extremity Laterality: left Plan to address problem: Patient for thrombectomy by Dr. Jay tomorrow Did not confirm Lovenox initiated (2) Subtherapeutic international normalized ratio (INR) Current Visit: Yes Status: Acute Plan to address problem: Patient noncompliant with her medication Will defer to Dr. Jay regarding Coumadin or Eliquis (3) Morbid obesity Current Visit: Yes Status: Chronic Plan to address problem: Counseled Needs follow-up with bariatric surgery department in the hospital Given referral at the time of discharge (4) DVT prophylaxis Current Visit: No Status: Acute Plan to address problem: On Lovenox and GI prophylaxis (5) Advance care planning Current Visit: Yes Status: Acute Plan to address problem: Disease education conducted, care plan discussed, diagnosis discussed, prognosis discussed. Patient is full code. Patient acknowledged understanding and agreement with care plan. +30 minutes.
[2021-12-29] MEDS: FAMOTIDINE 20 MG/2 ML INJ IV SCH (22:45)
[2021-12-30] MEDS: MORPHINE 2 MG/1 ML INJ IV PRN ×2 (03:24→13:55)
[2021-12-30] MEDS: SODIUM CHLORIDE 0.45% 1000 ML 1,000 ML IV SCH ×2 (04:03→19:51)
[2021-12-30] MEDS: oxyCODONE /ACETAMINOPHEN 5-325MG TAB PO PRN ×2 (06:03→15:55)
[2021-12-30 06:25] LABS: Basophils % (Auto) 0.4 % (0.0-1.8); Eosinophils # (Auto) 0.3 K/mm3 (0.0-0.4); Eosinophils % (Auto) 4.5 % (0.0-4.3); Hematocrit 32.5 % (35.5-45.6); Hemoglobin 10.3 gm/dl (11.8-15.2); Lymphocytes % (Auto) 26.7 % (13.4-35.0); Mean Corpuscular HGB Conc 32 % (32-34); Mean Corpuscular Volume 78 fl (84-94); Monocytes # (Auto) 0.7 K/mm3 (0.0-0.8); Platelet Count 184 K/mm3 (140-440); Red Blood Count 4.19 M/mm3 (3.65-5.03); Red Cell Distribution Width 17.7 % (13.2-15.2)
[2021-12-30 06:46] LABS: Alanine Aminotransferase 34 units/L (7-56); Albumin 3.6 g/dL (3.9-5); BUN/Creatinine Ratio 12; Blood Urea Nitrogen 11 mg/dL (9-20); Calcium 8.7 mg/dL (8.4-10.2); Hemolysis Index 2
[2021-12-30 08:02] LABS: Chol/HDL Ratio 5.05 %
[2021-12-30] MEDS ORDERED: NON-FORMULARY EACH (Metformin Hcl [Metformin Er Osmotic] 500 MG Tab.Er.24) PO SCH (10:00)
[2021-12-30] MEDS ORDERED: SODIUM CHLORIDE 0.9% 1000 ML 1,000 ML EKOSCLUMEN SCH (10:15)
[2021-12-30] MEDS ORDERED: SODIUM CHLORIDE 0.9% 1000 ML 1,000 ML IV SCH (10:15)
[2021-12-30] MEDS ORDERED: SODIUM CHLORIDE 0.9% 1000 ML 1,000 ML SHEATH SCH (10:15)
[2021-12-30] MEDS ORDERED: SODIUM CHLORIDE 0.9% 1000 ML 1,000 ML ONE ×2 (10:23→13:05)
[2021-12-30] MEDS ORDERED: ALTEPLASE 2 MG INJ ONE ×2 (10:23→10:25)
[2021-12-30] MEDS: MIDAZOLAM 2 MG/2 ML INJ ONE ×2 (10:35→10:52)
[2021-12-30] MEDS ORDERED: BIVALIRUDIN 250 MG INJ IV ONE (10:36)
[2021-12-30] MEDS: fentaNYL 100 MCG/2 ML INJ ONE ×3 (10:36→11:35)
[2021-12-30] MEDS ORDERED: SODIUM CHLORIDE 0.9% 250ML 0 ML ONE (10:36)
[2021-12-30] MEDS ORDERED: SODIUM CHLORIDE 0.9% 0 ML ONE ×2 (10:36→10:37)
[2021-12-30] MEDS ORDERED: SODIUM CHLORIDE 0.9% 500 ML 500 ML ONE ×2 (10:37→11:16)
[2021-12-30] MEDS: LIDOCAINE (1%) 10 MG/1 ML VIAL 20 ML MDV ONE ×2 (10:37→10:52)
[2021-12-30] MEDS ORDERED: WATER FOR INJ Sterile (PF) 10 ML ONE (10:45)
--- NOTE | 2021-12-30 11:09 | Progress Note ---
Assessment and Plan Assessment and plan: #Acute deep vein thrombosis of left lower extremity (proximal femoral vein) #Subtherapeutic INR #History of repeated deep vein thromboses #History of HIT #Coumadin counseling Patient previously prescribed warfarin 10 mg, and patient endorses being compliant. However, patient does endorse consuming various foods that are contraindicated when taking warfarin. Consumption of certain foods is probably the etiology for the subtherapeutic INR. Patient has been counseled at length about common foods that are contraindicated when utilizing warfarin. Patient expresses understanding. Venous Doppler revealing DVT in left proximal femoral vein. CT angio chest unremarkable for pulmonary embolism. Vascular surgery consulted; pending recs. Planning for mechanical thrombec michelle on 12/30/2021. Will defer to vascular surgery regarding final anticoagulant. We will resume argatroban drip following procedure today. Time: +15 minutes #Mild protein caloric malnutrition Albumin 3.6 Starting dietary supplementation #Morbid obesity #Weight loss counseling #Exercise counseling - BMI 51.4 - Counseled patient on the importance of weight loss, incorporating exercise, and dietary changes (lean meats, fresh fruits and vegetables, and water intake). Patient expresses understanding. - Time: +15 min #Advanced care planning -Disease education conducted, care plan discussed, diagnoses discussed, prognosis discussed, and patient acknowledges understanding with care plan -Time: +30 min Disposition Plan: Continue medical management Total Time Spent with Patient (Minutes): 45 minutes History Interval history: No acute events overnight. Hospitalist Physical - Constitutional Vitals: Temp Pulse Resp BP Pulse Ox 98.6 F 90 20 145/81 94 12/30/21 05:10 12/30/21 08:10 12/30/21 05:10 12/30/21 05:10 12/30/21 05:10 General appearance: Present: no acute distress, well-nourished, obese - EENT Eyes: Present: PERRL, EOM intact ENT: hearing intact, clear oral mucosa, dentition normal - Neck Neck: Present: supple, normal ROM - Respiratory Respiratory effort: normal Respiratory: bilateral: CTA - Cardiovascular Rhythm: regular Heart Sounds: Present: S1 & S2 - Extremities Extremities: no ischemia, pulses intact, pulses symmetrical, normal temperature, normal color, Full ROM Peripheral Pulses: within normal limits - Abdominal General gastrointestinal: soft, non-tender, non-distended, normal bowel sounds - Integumentary Integumentary: Present: clear, warm, dry - Psychiatric Psychiatric: appropriate mood/affect, memory intact, cooperative - Neurologic Neurologic: CNII-XII intact, moves all extremities - Allied Health Allied health notes reviewed: nursing HEART Score - HEART Score Troponin: Troponin T < 0.010 ng/mL (0.00-0.029) 12/29/21 14:31 Results - Labs CBC & Chem 7: 12/30/21 05:03 12/30/21 05:03 Labs: Laboratory Last Values WBC 7.4 K/mm3 (4.5-11.0) 12/30/21 05:03 RBC 4.19 M/mm3 (3.65-5.03) 12/30/21 05:03 Hgb 10.3 gm/dl (11.8-15.2) L 12/30/21 05:03 Hct 32.5 % (35.5-45.6) L 12/30/21 05:03 MCV 78 fl (84-94) L 12/30/21 05:03 MCH 25 pg (28-32) L 12/30/21 05:03 MCHC 32 % (32-34) 12/30/21 05:03 RDW 17.7 % (13.2-15.2) H 12/30/21 05:03 Plt Count 184 K/mm3 (140-440) 12/30/21 05:03 Lymph % (Auto) 26.7 % (13.4-35.0) 12/30/21 05:03 Young % (Auto) 10.0 % (0.0-7.3) H 12/30/21 05:03 Eos % (Auto) 4.5 % (0.0-4.3) H 12/30/21 05:03 Baso % (Auto) 0.4 % (0.0-1.8) 12/30/21 05:03 Lymph # (Auto) 2.0 K/mm3 (1.2-5.4) 12/30/21 05:03 Young # (Auto) 0.7 K/mm3 (0.0-0.8) 12/30/21 05:03 Eos # (Auto) 0.3 K/mm3 (0.0-0.4) 12/30/21 05:03 Baso # (Auto) 0.0 K/mm3 (0.0-0.1) 12/30/21 05:03 Seg Neutrophils % 58.4 % (40.0-70.0) 12/30/21 05:03 Seg Neutrophils # 4.3 K/mm3 (1.8-7.7) 12/30/21 05:03 PT 18.2 Sec. (12.2-14.9) H 12/29/21 14:31 INR 1.34 (0.87-1.13) H 12/29/21 14:31 APTT 99.6 Sec. (24.2-36.6) H* 12/30/21 05:03 Sodium 139 mmol/L (137-145) 12/30/21 05:03 Potassium 4.2 mmol/L (3.6-5.0) 12/30/21 05:03 Chloride 101.1 mmol/L (98-107) 12/30/21 05:03 Carbon Dioxide 26 mmol/L (22-30) 12/30/21 05:03 Anion Gap 16 mmol/L 12/30/21 05:03 BUN 11 mg/dL (9-20) 12/30/21 05:03 Creatinine 0.9 mg/dL (0.8-1.3) 12/30/21 05:03 Estimated GFR > 60 ml/min 12/30/21 05:03 BUN/Creatinine Ratio 12 % 12/30/21 05:03 Glucose 117 mg/dL (75-100) H 12/30/21 05:03 POC Glucose 130 mg/dL (70-105) H 12/30/21 08:34 Hemoglobin A1c 7.4 % (4-6) H 12/30/21 05:03 Calcium 8.7 mg/dL (8.4-10.2) 12/30/21 05:03 Total Bilirubin 0.40 mg/dL (0.1-1.2) 12/30/21 05:03 AST 31 units/L (5-40) 12/30/21 05:03 ALT 34 units/L (7-56) 12/30/21 05:03 Alkaline Phosphatase 92 units/L (35-129) 12/30/21 05:03 Troponin T < 0.010 ng/mL (0.00-0.029) 12/29/21 14:31 Total Protein 7.5 g/dL (6.3-8.2) 12/30/21 05:03 Albumin 3.6 g/dL (3.9-5) L 12/30/21 05:03 Albumin/Globulin Ratio 0.9 % 12/30/21 05:03 Triglycerides 124 mg/dL (2-149) 12/30/21 05:03 Cholesterol 187 mg/dL (50-199) 12/30/21 05:03 LDL Cholesterol Direct 123 mg/dL (50-130) 12/30/21 05:03 HDL Cholesterol 37 mg/dL (40-59) L 12/30/21 05:03 Cholesterol/HDL Ratio 5.05 % 12/30/21 05:03 Active Medications - Current Medications Current Medications: Generic Name Dose Route Start Last Admin Trade Name Freq PRN Reason Stop Dose Admin Acetaminophen 650 mg 12/29/21 22:00 Acetaminophen 325 Mg Tab PO Q4H PRN Pain MILD(1-3)/Fever >100.5/BILL Famotidine 20 mg 12/29/21 22:00 12/29/21 22:45 Famotidine 20 Mg/2 Ml Inj IV 20 mg BID DAXA Administration Argatroban 250 mg/ Sodium 250 mls @ 5.443 mls/hr 12/29/21 18:00 12/30/21 00:27 Chloride IV 1 mcg/kg/min TITR DAXA 10.886 mls/hr Titration Protocol 0.5 MCG/KG/MIN Sodium Chloride 1,000 mls @ 75 mls/hr 12/29/21 22:00 12/30/21 04:03 Nacl 0.45% 1000 Ml IV 75 mls/hr DIRECT DAXA Administration Sodium Chloride 1,000 mls @ 30 mls/hr 12/30/21 10:15 Nacl 0.9% 1000 Ml IV DIRECT DAXA Alteplase, Recombinant 20 mg/ 500 mls @ 25 mls/hr 12/30/21 10:12 Sodium Chloride EKOSDLUMEN 12/31/21 06:11 DIRECT STA Sodium Chloride 1,000 mls @ 30 mls/hr 12/30/21 10:15 Nacl 0.9% 1000 Ml SHEATH DIRECT DAXA Sodium Chloride 1,000 mls @ 35 mls/hr 12/30/21 10:15 Nacl 0.9% 1000 Ml EKOSCLUMEN DIRECT DAXA Metformin HCl 1,000 mg 12/30/21 08:00 Metformin Xr 500mg Tab PO QDDIAB DAXA Morphine Sulfate 2 mg 12/29/21 23:30 12/30/21 03:24 Morphine 2 Mg/1 Ml Inj IV 2 mg Q4H PRN Administration Pain, Moderate (4-6) Ondansetron HCl 4 mg 12/29/21 22:30 Ondansetron 4 Mg/2 Ml Inj IV Q8H PRN Nausea And Vomiting Oxycodone/Acetaminophen 1 tab 12/29/21 22:30 12/30/21 06:03 Oxycodone /Acetaminophen 5-325mg Tab PO 1 tab Q6H PRN Administration Pain, Moderate (4-6) Sodium Chloride 10 ml 12/29/21 22:00 12/29/21 22:45 Sodium Chloride 0.9% 10 Ml Flush Syringe IV 10 ml BID DAXA Administration Sodium Chloride 10 ml 12/29/21 21:54 Sodium Chloride 0.9% 10 Ml Flush Syringe IV PRN PRN LINE FLUSH
[2021-12-30] MEDS ORDERED: LIDOCAINE (1%) 10 MG/1 ML VIAL 20 ML MDV ONE (11:15)
[2021-12-30 11:48] LABS: Basophils % (Auto) 0.5 % (0.0-1.8); Eosinophils # (Auto) 0.3 K/mm3 (0.0-0.4); Eosinophils % (Auto) 4.3 % (0.0-4.3); Hematocrit 34.8 % (35.5-45.6); Hemoglobin 10.9 gm/dl (11.8-15.2); Lymphocytes # (Auto) 1.5 K/mm3 (1.2-5.4); Lymphocytes % (Auto) 21.2 % (13.4-35.0); Mean Corpuscular HGB Conc 31 % (32-34); Mean Corpuscular Volume 78 fl (84-94); Monocytes # (Auto) 0.7 K/mm3 (0.0-0.8); Monocytes % (Auto) 10.1 % (0.0-7.3); Platelet Count 172 K/mm3 (140-440); Red Blood Count 4.48 M/mm3 (3.65-5.03); Red Cell Distribution Width 17.5 % (13.2-15.2)
--- NOTE | 2021-12-30 11:51 | Operative Report ---
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 Pulses intact. Date: 12/30/2021 Procedure: Following an explanation of the risk, benefits and alternatives; written informed consent was obtained. The patient was brought to the angiographic suite and placed in prone position on the examination table. Initial ultrasound evaluation of the patient's leg demonstrated what appeared to be the left popliteal vein. 2% lidocaine was used for anesthesia. The patient was sterilely prepped and draped. Initial attempts with a smaller ultrasound to cannulate the popliteal vein were unsuccessful. An attempt was made to cannulate the small saphenous vein in an attempt to gain access into the popliteal vein however, this is tortuous and not draining into the popliteal vein. With proper ultrasound, the popliteal vein was well visualized and 2% lidocaine was used at the access site. The popliteal vein was cannulated with a 7 cm 21-gauge needle. A 0.018 guidewire was advanced centrally. The needle was removed and a 6 Tong[place] sheath placed. Contrast was gently injected through the sheath which demonstrates appropriate positioning within the distal popliteal vein with contrast flowing into the femoral vein. There is near occlusive thrombus involving the popliteal and femoral vein. A catheter and guidewire were then advanced through the sheath. Together the catheter and guidewire were advanced into the common femoral vein. Contrast was injected. This demonstrates significant thrombus in the common femoral vein with thrombus extending into the deep femoral vein. Additionally, there is thrombus extending into the external iliac vein. The catheter and guidewire were then advanced through the thrombosed external iliac vein into the common iliac vein and IVC. The common iliac vein is relatively patent with only minimal thrombus. There is a minimal amount of thrombus within the filter. Above the filter, the IVC appears to be patent although decreased flow is present. Initial attempts to place an EKOS thrombolytics catheter over the guidewire were unsuccessful. Venoplasty was then performed using a 4 mm x 200 mm balloon from the left common iliac vein to the mid femoral vein. Following venoplasty, a 50 cm infusion length 106 cm total length EKOS thrombolytics catheter was advanced over the guidewire. The end of the catheter is positioned in the common iliac vein proximally and distally within the distal femoral vein. The infusion wire was placed. The catheter was securely fastened to the skin surface using 2-0 Ethilon suture and 2-0 Ethilon suture was also used to fix the thrombolytics catheter to the sheath. The catheter was then primed with 4 mg of tPA. I the patient tolerated the procedure well. There were no immediate postprocedure complications. Conscious sedation was performed under the guidance of radiologic nursing. Continuous cardiopulmonary monitoring was utilized. Impression: 1) Left lower extremity venogram demonstrating thrombus from the popliteal vein to the external iliac vein. There appears to be decreased flow within the common iliac vein and IVC with small amount of retained thrombus within the previously placed IVC filter. 2) Venoplasty of the left common iliac vein, left external iliac vein, left common femoral vein and proximal and mid portions of the femoral vein using a 4 mm balloon. 3) Initiation of EKOS thrombolytics catheter with placement of a 50 cm infusion length 106 cm total length thrombolytics catheter. Argatroban is being used instead of heparin given the patient's heparin induced thrombocytopenia.
[2021-12-30 11:58] LABS: INR 1.61 (0.87-1.13)
[2021-12-30 11:59] LABS: Partial Thromboplastin Time 44.1 Sec. (24.2-36.6)
[2021-12-30 12:01] LABS: BUN/Creatinine Ratio 12; Blood Urea Nitrogen 11 mg/dL (9-20); Calcium 8.9 mg/dL (8.4-10.2); Hemolysis Index 1
[2021-12-30] MEDS: ALTEPLASE 20 MG in SODIUM CHLORIDE 0.9% 500 ML 500 ML EKOSDLUMEN STA ×2 (12:13→12:45)
[2021-12-30] MEDS: ARGATROBAN 250 MG in SODIUM CHLORIDE 0.9% 250ML 247.5 ML IV SCH ×3 (12:13→22:25)
[2021-12-30] MEDS: FAMOTIDINE 20 MG/2 ML INJ IV SCH ×2 (15:41→22:24)
[2021-12-30] MEDS: metFORMIN XR 500MG TAB PO SCH (15:41)
--- NOTE | 2021-12-30 16:52 | Progress Note ---
Assessment and Plan Assessment and plan: Assessment and Plan Advance Directives: Yes (Full code) VTE prophylaxis?: Chemical Plan of care discussed with patient/family: Yes Patient Problems (1) DVT (deep venous thrombosis) Current Visit: Yes Status: Acute Qualifiers: DVT location: lower extremity Laterality: left Plan to address problem: S/p thrombectomy Patient is started on TPA and agatraban-with EKOS (2) Subtherapeutic international normalized ratio (INR) Current Visit: Yes Status: Acute Plan to address problem: Patient noncompliant with her medication education and counseling done-complication of non-compliance explained to patient including and dying from stroke/WI/PE patient voiced understanding (3) Morbid obesity Current Visit: Yes Status: Chronic Plan to address problem: Counseled on healthy diet and weight management Needs follow-up with bariatric surgery department in the hospital Given referral at the time of discharge (4) DVT prophylaxis Current Visit: No Status: Acute Plan to address problem: TPA and agatraban (5) Advance care planning Current Visit: Yes Status: Acute Plan to address problem: Disease education conducted-patient voiced understanding The high probability of a clinically significant, sudden or life threatening deterioration of the [multi] system(s) required my full and direct attention, intervention and personal management. The aggregate critical care time was [60] minutes. This time is in addition to time spent performing reported procedures but includes the following: [x] Data Review and interpretation [x] Patient assessment and monitoring of vital signs [x] Documentation [x] Medication orders and management Disposition Plan: icu Total Time Spent with Patient (Minutes): 60 History Interval history: Patient recieved in the unit-s/p Left lower extremity venogram, IVC venogram, initiation of EKOS thrombolytic catheter with placement of catheter. 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 Pulses intact. He said he has dvt to right leg 5 times and left 2 times. Patient report a hx of sleep apnea and on home b-pap at night. Will consult respiratory for bipap management. Hospitalist Physical - Constitutional Vitals: Temp Pulse Resp BP Pulse Ox 98.6 F 90 13 145/81 94 12/30/21 05:10 12/30/21 08:10 12/30/21 15:55 12/30/21 05:10 12/30/21 05:10 General appearance: Present: no acute distress, well-nourished, obese - Respiratory Respiratory: bilateral: CTA - Extremities Extremities: abnormal (right leg wound with dressing-intact) Peripheral Pulses: within normal limits - Abdominal General gastrointestinal: soft, non-tender - Integumentary Integumentary: Present: warm - Psychiatric Psychiatric: appropriate mood/affect, cooperative - Allied Health Allied health notes reviewed: nursing HEART Score - HEART Score Troponin: Troponin T < 0.010 ng/mL (0.00-0.029) 12/29/21 14:31 Results - Labs CBC & Chem 7: 12/30/21 11:29 12/30/21 11:29 Labs: Laboratory Last Values WBC 7.1 K/mm3 (4.5-11.0) 12/30/21 11: RBC 4.48 M/mm3 (3.65-5.03) 12/30/21 11:29 Hgb 10.9 gm/dl (11.8-15.2) L 12/30/21 11:29 Hct 34.8 % (35.5-45.6) L 12/30/21 11:29 MCV 78 fl (84-94) L 12/30/21 11:29 MCH 24 pg (28-32) L 12/30/21 11:29 MCHC 31 % (32-34) L 12/30/21 11:29 RDW 17.5 % (13.2-15.2) H 12/30/21 11:29 Plt Count 172 K/mm3 (140-440) 12/30/21 11:29 Lymph % (Auto) 21.2 % (13.4-35.0) 12/30/21 11:29 Hall % (Auto) 10.1 % (0.0-7.3) H 12/30/21 11:29 Eos % (Auto) 4.3 % (0.0-4.3) 12/30/21 11:29 Baso % (Auto) 0.5 % (0.0-1.8) 12/30/21 11:29 Lymph # (Auto) 1.5 K/mm3 (1.2-5.4) 12/30/21 11:29 Hall # (Auto) 0.7 K/mm3 (0.0-0.8) 12/30/21 11:29 Eos # (Auto) 0.3 K/mm3 (0.0-0.4) 12/30/21 11:29 Baso # (Auto) 0.0 K/mm3 (0.0-0.1) 12/30/21 11:29 Seg Neutrophils % 63.9 % (40.0-70.0) 12/30/21 11:29 Seg Neutrophils # 4.5 K/mm3 (1.8-7.7) 12/30/21 11:29 PT 21.1 Sec. (12.2-14.9) H 12/30/21 11:29 INR 1.61 (0.87-1.13) H 12/30/21 11:29 APTT 44.1 Sec. (24.2-36.6) H 12/30/21 11:29 Fibrinogen 339 mg/dl (211-480) 12/30/21 11:29 Sodium 135 mmol/L (137-145) L 12/30/21 11:29 Potassium 4.1 mmol/L (3.6-5.0) 12/30/21 11:29 Chloride 98.5 mmol/L (98-107) 12/30/21 11:29 Carbon Dioxide 28 mmol/L (22-30) 12/30/21 11:29 Anion Gap 13 mmol/L 12/30/21 11:29 BUN 11 mg/dL (9-20) 12/30/21 11:29 Creatinine 0.9 mg/dL (0.8-1.3) 12/30/21 11:29 Estimated GFR > 60 ml/min 12/30/21 11:29 BUN/Creatinine Ratio 12 % 12/30/21 11:29 Glucose 126 mg/dL (75-100) H 12/30/21 11:29 POC Glucose 130 mg/dL (70-105) H 12/30/21 08:34 Hemoglobin A1c 7.4 % (4-6) H 12/30/21 05:03 Calcium 8.9 mg/dL (8.4-10.2) 12/30/21 11:29 Total Bilirubin 0.40 mg/dL (0.1-1.2) 12/30/21 05:03 AST 31 units/L (5-40) 12/30/21 05:03 ALT 34 units/L (7-56) 12/30/21 05:03 Alkaline Phosphatase 92 units/L (35-129) 12/30/21 05:03 Troponin T < 0.010 ng/mL (0.00-0.029) 12/29/21 14:31 Total Protein 7.5 g/dL (6.3-8.2) 12/30/21 05:03 Albumin 3.6 g/dL (3.9-5) L 12/30/21 05:03 Albumin/Globulin Ratio 0.9 % 12/30/21 05:03 Triglycerides 124 mg/dL (2-149) 12/30/21 05:03 Cholesterol 187 mg/dL (50-199) 12/30/21 05:03 LDL Cholesterol Direct 123 mg/dL (50-130) 12/30/21 05:03 HDL Cholesterol 37 mg/dL (40-59) L 12/30/21 05:03 Cholesterol/HDL Ratio 5.05 % 12/30/21 05:03 Active Medications - Current Medications Current Medications: Generic Name Dose Route Start Last Admin Trade Name Freq PRN Reason Stop Dose Admin Acetaminophen 650 mg 12/29/21 22:00 Acetaminophen 325 Mg Tab PO Q4H PRN Pain MILD(1-3)/Fever >100.5/BILL Famotidine 20 mg 12/29/21 22:00 12/30/21 15:41 Famotidine 20 Mg/2 Ml Inj IV Not Given BID DAXA Hydromorphone HCl 2 mg 12/30/21 16:28 Hydromorphone 2 Mg/1 Ml Inj IV Q3H PRN Pain , Severe (7-10) Argatroban 250 mg/ Sodium 250 mls @ 5.443 mls/hr 12/29/21 18:00 12/30/21 12:45 Chloride IV 1 mcg/kg/min TITR DAXA 10.886 mls/hr Administration Protocol 0.5 MCG/KG/MIN Sodium Chloride 1,000 mls @ 75 mls/hr 12/29/21 22:00 12/30/21 04:03 Nacl 0.45% 1000 Ml IV 75 mls/hr DIRECT DAXA Administration Sodium Chloride 1,000 mls @ 30 mls/hr 12/30/21 10:15 Nacl 0.9% 1000 Ml IV DIRECT DAXA Alteplase, Recombinant 20 mg/ 500 mls @ 25 mls/hr 12/30/21 10:12 12/30/21 12:45 Sodium Chloride EKOSDLUMEN 12/31/21 06:11 0 mls DIRECT STA Administration Sodium Chloride 1,000 mls @ 30 mls/hr 12/30/21 10:15 Nacl 0.9% 1000 Ml SHEATH DIRECT DAXA Sodium Chloride 1,000 mls @ 35 mls/hr 12/30/21 10:15 12/30/21 12:45 Nacl 0.9% 1000 Ml EKOSCLUMEN 0 mls DIRECT DAXA Administration Metformin HCl 1,000 mg 12/30/21 08:00 12/30/21 15:41 Metformin Xr 500mg Tab PO Not Given QDDIAB DAXA Morphine Sulfate 2 mg 12/29/21 23:30 12/30/21 13:55 Morphine 2 Mg/1 Ml Inj IV 2 mg Q4H PRN Administration Pain, Moderate (4-6) Ondansetron HCl 4 mg 12/29/21 22:30 Ondansetron 4 Mg/2 Ml Inj IV Q8H PRN Nausea And Vomiting Oxycodone/Acetaminophen 1 tab 12/29/21 22:30 12/30/21 15:55 Oxycodone /Acetaminophen 5-325mg Tab PO 1 tab Q6H PRN Administration Pain, Moderate (4-6) Sodium Chloride 10 ml 12/29/21 22:00 12/30/21 15:41 Sodium Chloride 0.9% 10 Ml Flush Syringe IV Not Given BID DAXA Sodium Chloride 10 ml 12/29/21 21:54 Sodium Chloride 0.9% 10 Ml Flush Syringe IV PRN PRN LINE FLUSH
[2021-12-30] MEDS: HYDROmorphone 2 MG/1 ML INJ IV PRN ×2 (18:23→22:24)
[2021-12-30] MEDS ORDERED: CETIRIZINE 10 MG TAB PO ONE (21:00)
[2021-12-31] MEDS: HYDROmorphone 2 MG/1 ML INJ IV PRN ×5 (03:21→21:31)
[2021-12-31 05:00] LABS: Hematocrit 33.8 % (35.5-45.6); Hemoglobin 10.7 gm/dl (11.8-15.2); Mean Corpuscular HGB Conc 32 % (32-34); Mean Corpuscular Volume 78 fl (84-94); Platelet Count 165 K/mm3 (140-440); Red Blood Count 4.31 M/mm3 (3.65-5.03); Red Cell Distribution Width 17.1 % (13.2-15.2)
[2021-12-31 05:15] LABS: INR 2.19 (0.87-1.13)
[2021-12-31 05:18] LABS: BUN/Creatinine Ratio 11; Blood Urea Nitrogen 9 mg/dL (9-20); Calcium 8.4 mg/dL (8.4-10.2); Hemolysis Index 2
[2021-12-31] MEDS ORDERED: SODIUM CHLORIDE 0.9% 500 ML 500 ML ONE ×4 (06:13→15:46)
[2021-12-31] MEDS ORDERED: SODIUM CHLORIDE 0.9% 500 ML 500 ML VEN-SHEATH SCH (06:15)
[2021-12-31] MEDS: metFORMIN XR 500MG TAB PO SCH (08:51)
[2021-12-31] MEDS: SODIUM CHLORIDE 0.45% 1000 ML 1,000 ML IV SCH (09:12)
[2021-12-31] MEDS: FAMOTIDINE 20 MG/2 ML INJ IV SCH ×2 (09:12→21:31)
--- NOTE | 2021-12-31 09:36 | Electrocardiograph Report ---
[facility] Test Date: 2021-12-29 Test Time: 15:34:57 Pat Name: YESSI GARCIA Department: Room: A263 Gender: M [employer] Supervisor: MARY ANN : 1980 Requested By: JOSÉ MIGUEL HERRING Order Number: [id number] Reading MD: Roberto Veronica Measurements Intervals [place] Rate: 92 P: 54 WV: 176 QRS: 27 QRSD: 69 T: 11 QT: 328 QTc: 406 Interpretive Statements Sinus rhythm No previous ECG available for comparison Electronically Signed On 12-31-2021 9:36:18 EDT by Roberto Veronica
--- NOTE | 2021-12-31 11:18 | Event Note ---
Date: 12/31/21 Evaluated patient and he has no complaints. There is no evidence of active bleeding. A Fibrinogen level was ordered as this was not performed with am labs.
--- NOTE | 2021-12-31 13:29 | Consultation ---
History of Present Illness - Reason for Consult Consult date: 12/31/21 Post EKOS therapy Medications and Allergies Allergies Allergy/AdvReac Type Severity Reaction Status Date / Time heparin Allergy HIT Verified 12/30/21 09:22 Home Medications Medication Instructions Recorded Confirmed Last Taken Type Apixaban [Eliquis] 5 mg PO BID 08/22/19 12/30/21 04/02/20 06:30 History 5 mg Metformin HCl [metFORMIN ER 1,000 mg PO DAILY 04/02/20 12/30/21 12/28/21 History Osmotic] Active Meds: Active Medications Acetaminophen (Acetaminophen 325 Mg Tab) 650 mg PO Q4H PRN PRN Reason: Pain MILD(1-3)/Fever >100.5/BILL Famotidine (Famotidine 20 Mg/2 Ml Inj) 20 mg IV BID DAXA Last Admin: 12/31/21 09:12 Dose: 20 mg Hydromorphone HCl (Hydromorphone 2 Mg/1 Ml Inj) 2 mg IV Q3H PRN PRN Reason: Pain , Severe (7-10) Last Admin: 12/31/21 11:54 Dose: 2 mg Argatroban 250 mg/ Sodium (Chloride) 250 mls @ 5.443 mls/hr IV TITR DAXA; Protocol Last Admin: 12/30/21 22:25 Dose: 0.5 mcg/kg/min, 5.443 mls/hr Sodium Chloride (Nacl 0.45% 1000 Ml) 1,000 mls @ 75 mls/hr IV DIRECT DAXA Last Admin: 12/31/21 09:12 Dose: 75 mls/hr Sodium Chloride (Nacl 0.9% 1000 Ml) 1,000 mls @ 30 mls/hr IV DIRECT DAXA Sodium Chloride (Nacl 0.9% 1000 Ml) 1,000 mls @ 30 mls/hr SHEATH DIRECT DXAA Sodium Chloride (Nacl 0.9% 1000 Ml) 1,000 mls @ 35 mls/hr EKOSCLUMEN DIRECT DAXA Last Admin: 12/30/21 12:45 Dose: 0 mls Sodium Chloride (Nacl 0.9% 500 Ml) 500 mls @ 25 mls/hr REYNA-SHEATH DIRECT DAXA Last Admin: 12/31/21 06:19 Dose: 25 mls/hr Metformin HCl (Metformin Xr 500mg Tab) 1,000 mg PO QDDIAB DAXA Last Admin: 12/31/21 08:51 Dose: Not Given Morphine Sulfate (Morphine 2 Mg/1 Ml Inj) 2 mg IV Q4H PRN PRN Reason: Pain, Moderate (4-6) Last Admin: 12/30/21 13:55 Dose: 2 mg Ondansetron HCl (Ondansetron 4 Mg/2 Ml Inj) 4 mg IV Q8H PRN PRN Reason: Nausea And Vomiting Oxycodone/Acetaminophen (Oxycodone /Acetaminophen 5-325mg Tab) 1 tab PO Q6H PRN PRN Reason: Pain, Moderate (4-6) Last Admin: 12/30/21 15:55 Dose: 1 tab Sodium Chloride (Sodium Chloride 0.9% 10 Ml Flush Syringe) 10 ml IV BID [facility] Last Admin: 12/31/21 12:09 Dose: 10 ml Sodium Chloride (Sodium Chloride 0.9% 10 Ml Flush Syringe) 10 ml IV PRN PRN PRN Reason: LINE FLUSH Exam - Constitutional Vitals: Temp Pulse Resp BP Pulse Ox 98.6 F 90 22 131/81 93 12/31/21 12:06 12/31/21 12:00 12/31/21 12:02 12/31/21 12:00 12/31/21 12:02 Results - Labs CBC & Chem 7: 12/31/21 04:09 12/31/21 04:09 Labs: Abnormal lab results 12/30/21 12/30/21 12/31/21 Range/Units 20:22 Unknown 04:09 Hgb 10.7 L (11.8-15.2) gm/dl Hct 33.8 L (35.5-45.6) % MCV 78 L (84-94) fl MCH 25 L (28-32) pg RDW 17.1 H (13.2-15.2) % PT (12.2-14.9) Sec. INR (0.87-1.13) APTT 72.4 H* 56.0 H (24.2-36.6) Sec. Fibrinogen (211-480) mg/dl Sodium (137-145) mmol/L Glucose (75-100) mg/dL 12/31/21 12/31/21 12/31/21 Range/Units 04:09 04:09 09:17 Hgb (11.8-15.2) gm/dl Hct (35.5-45.6) % MCV (84-94) fl MCH (28-32) pg RDW (13.2-15.2) % PT 27.2 H (12.2-14.9) Sec. INR 2.19 H (0.87-1.13) APTT 88.9 H* (24.2-36.6) Sec. Fibrinogen (211-480) mg/dl Sodium 134 L (137-145) mmol/L Glucose 108 H (75-100) mg/dL 12/31/21 Range/Units 09:17 Hgb (11.8-15.2) gm/dl Hct (35.5-45.6) % MCV (84-94) fl MCH (28-32) pg RDW (13.2-15.2) % PT (12.2-14.9) Sec. INR (0.87-1.13) APTT (24.2-36.6) Sec. 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 1. Continue NIV at night for CARA 2. Vascular to remove catheters at some point today 3. Anticoagulation with non heparin drugs given HIT 4. Return to floor once catheter out and monitoring time has ended. 5. Weight loss if possible.
[2021-12-31] MEDS: fentaNYL 100 MCG/2 ML INJ ONE ×3 (14:35→15:20)
[2021-12-31] MEDS: MIDAZOLAM 2 MG/2 ML INJ ONE ×3 (14:35→15:20)
[2021-12-31] MEDS ORDERED: LIDOCAINE (2%) 20 MG/1 ML VIAL 50 ML MDV INFILTRATI ONE (14:43)
[2021-12-31] MEDS ORDERED: BIVALIRUDIN 250 MG INJ IV ONE (14:43)
[2021-12-31] MEDS ORDERED: SODIUM CHLORIDE 0.9% 100 ML ONE (14:43)
[2021-12-31] MEDS ORDERED: fentaNYL 100 MCG/2 ML INJ ONE (15:48)
--- NOTE | 2021-12-31 16:27 | Operative Report ---
Operative Report Operative Report: Exam: Removal of thrombolytics catheter, venoplasty, venous stent placement Clinical indication: Patient with a history of multiple prior recurrent DVTs with indwelling IVC filter and previously placed stent on the right that extends from the external iliac vein to the mid common iliac vein. Patient presented with extensive left iliofemoral DVT and is now returned to the Purchasing Specialist following 24 hours of lysis. Date: 12/31/2021 Procedure: Following an explanation of the risks, benefits and alternatives; the patient was brought to the Purchasing Specialist and placed in supine position on the examination table. Patient with indwelling EKOS thrombolytics catheter and 6 [place] sheath in the left popliteal fossa. The left popliteal fossa, indwelling catheter and bilateral groins were prepped and draped in the usual sterile fashion. 1% lidocaine was used for anesthesia at the catheter exit site. The infusion wire was removed. Contrast was gently injected through the indwelling thrombolytics catheter. This demonstrates significantly decreased thrombus burden in the leg below the level of the inguinal ligament. Chronic occlusion and chronic thrombus is present extending from the IVC to the common femoral vein. Extensive collateral formation is identified. Under ultrasound guidance, access to the right groin was performed using a 7 cm 18-gauge needle advanced into the common femoral vein under ultrasound guidance. A 0.035 guidewire was advanced into the IVC to document intravenous positioning and the needle removed. Initial attempts to place a 5 [place] sheath over unsuccessful given the patient's extensive cardiac scar tissue. Patient has her previously replaced right hip. Ultimately, a 5 [place] sheath was placed in the right common femoral vein. Contrast was injected through the sheath which demonstrates that the right system is widely patent. The external iliac vein, common iliac vein are widely patent. The IVC is patent. No significant intraluminal thrombus is identified in the IVC or within the filter. Ultrasound evaluation of the left groin demonstrated that the thrombus extended below the level of the inguinal ligament. A decision was made to treat therefore from the left popliteal fossa. Following serial dilation over the guidewire, a 10 [place] 35 cm sheath was advanced into the popliteal vein over a guidewire with the tip of the sheath in the proximal femoral vein. Contrast was injected through the sheath. This demonstrates that the femoral vein is patent with only trace residual thrombus. There is occlusion of the external iliac vein, common iliac vein with massive cross pelvic, paraspinal and abdominal collaterals extending from left to right. The guidewire remains in the IVC. A vertebral catheter was then advanced over the guidewire through the thrombolytics catheter into the IVC. Contrast was injected to document true luminal positioning. A sequential venoplasty was then performed on the left first using an 8 mm balloon followed by a 12 mm balloon. Post venoplasty imaging demonstrated improved luminal flow however there is immediate elastic recoil and decision was made to treat this area with stent placement. A 14 mm x 150 mm Abre stent was then advanced through the left sheath and deployed to extend from the external iliac vein into the distal common femoral vein. The stent was seated using a 12 mm balloon insufflated to 7 - 9 giovanni of multiple locations. Post intervention imaging demonstrated improved luminal flow to the end of the stent however, extensive collateral formation is still identified. Flow does extend in to the common iliac vein to the IVC however, given the angulation decision was made to confirm this by placement of a C2 catheter over the guidewire from the right sheath. A guidewire was easily advanced down the left system documenting that both channels drain into the IVC. Additional venoplasty was then performed in the common iliac vein and external iliac vein using a 12 mm balloon. A 14 mm x 150 mm Abre stent was then advanced into the IVC just below the level of the filter. On the right, a 16 mm x 100 mm Abre stent was advanced to just below the level of the filter. The stents were deployed in kissing fashion and then seated using 14 mm balloons. Post intervention imaging demonstrated significantly improved flow on the right with brisk flow from the sheath insertion site into the IVC. On the left, there is significantly improved flow however at the top, there is scar formation along the lateral wall of the IVC at the level of the filter. The 12 mm balloon was again advanced over the guidewire through the left sheath to the level of the inferior feet of the filter and venoplasty was performed. The balloon was insufflated to 8 giovanni for 30 seconds. Post intervention imaging demonstrated significantly improved luminal flow from the sheath insertion site into the IVC. There is nonvisualization's of the previously noted extensive collaterals. At this point, the catheters, guidewires and sheaths were all removed and hemostasis achieved using manual compression at both access sites. Pressure dressings were then applied. The patient tolerated the procedure well. There were no immediate postprocedure complications. Conscious sedation was performed under the guidance of radiologic nursing. Continuous cardiopulmonary monitoring was utilized Impression: 1) Bilateral lower extremity venogram following thrombolytics demonstrating significantly improved flow in the left femoral vein with only trace residual thrombus. 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 2) Removal of EKOS thrombolytics catheter. 3) Sequential venoplasty of the left common iliac vein, left external iliac vein and left common femoral vein as described with significant elastic recoil. 4) Treatment of the extensive lesions with placement of overlapping 14 mm x 150 mm stents which were seated using 12 and 14 mm balloons supported on the right was a 16 mm x 100mm stent 5) The patient will need referral to hematology given his repeated DVTs. He will remain on Coumadin. The patient will ultimately need removal of the filter and elongation of the stents given the extensive scar formation around the level of the filter at the feet.
[2021-12-31] MEDS ORDERED: hydrALAZINE 20 MG/1 ML INJ IV PRN (17:17)
--- NOTE | 2021-12-31 17:19 | Progress Note ---
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 admitted with acute DVT of left lower extremity and subtherapeutic INR Neuro: NAD -Avoid delirium -Reorientation as needed -Maintain sleep-wake cycle -As needed analgesia Cardiac: NAD -Blood pressure monitoring per protocol -Hydral PRN Respiratory: NAD -Supplemental oxygen as needed -pulmonary hygiene -SPO2 monitoring GI: Morbid obesity, mild protein calorie malnutrition -24 hours +644 mL -PPI -NTR consulted for tube feedings -BR: colace : Slight hyponatremia -Strict intake and output -Renally dose medications -Avoid nephrotoxic medications -Daily weights -Trend BMP ID: NAD -f/u blood culture -Monitor WBC and temperature curve Endo: h/o "Prediabetes" -Hemoglobin A1c 7.4 -Avoid hypoglycemia -Hold metformin -Accucheck ACHS -SSI Heme: Subtherapeutic INR, acute DVT of left lower extremity (proximal femoral vein), h/o DVT, HIT, s/p IVC -CTA chest showed no evidence of pulmonary embolism -Bilateral lower extremity Doppler ultrasound showed acute appearing DVT throughout the left lower extremity, no evidence of DVT on the right side -Of note patient was previously prescribed warfarin 10 mg and patient endorses compliance however he did endorse consuming various foods continue to daily with warfarin -Vascular surgery consulted, appreciate recommendations -S/p thrombectomy 12/30 -System anticoagulation with argatroban drip -Trend CBC -Transfuse hemoglobin less than 7 -Monitor for signs of bleeding -SCDs to BLE while in bed -Per vasular: The patient will need referral to hematology given his repeated DVTs. He will remain on Coumadin. The patient will ultimately need removal of the filter and elongation of the stents given the extensive scar formation around the level of the filter at the feet. The high probability of a clinically significant, sudden or life threatening deterioration of the [multi] system(s) required my full and direct attention, intervention and personal management. The aggregate critical care time was [60] minutes. 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 Jay. Patient was admitted to the hospital service with consult to vascular surgery with plan for thrombectomy. Hospital course to date: 12/30: patient transferred to ICU s/p thrombectomy close monitoring 12/31: Patient taken to Trim Technician for removal of EKOS catheter. Will need to stay flat for 4 hours post and possible transfer to floor. No acute events overnight. Hospitalist Physical - Constitutional Vitals: Temp Pulse Resp BP Pulse Ox 98.6 F 90 22 131/81 93 12/31/21 12:06 12/31/21 12:00 12/31/21 12:02 12/31/21 12:00 12/31/21 12:02 General appearance: Present: no acute distress, well-nourished, obese - EENT Eyes: Present: PERRL, EOM intact ENT: hearing intact, clear oral mucosa, dentition normal - Neck Neck: Present: supple, normal ROM - Respiratory Respiratory effort: normal Respiratory: bilateral: diminished - Cardiovascular Rhythm: regular Heart Sounds: Present: S1 & S2. Absent: systolic murmur, diastolic murmur - Extremities Extremities: no ischemia, pulses intact, pulses symmetrical, No edema, normal temperature, normal color Peripheral Pulses: within normal limits - Abdominal General gastrointestinal: soft, non-tender, non-distended, normal bowel sounds - Integumentary Integumentary: Present: warm, dry - Psychiatric Psychiatric: cooperative - Neurologic Neurologic: CNII-XII intact, no focal deficits, moves all extremities - Allied Health Allied health notes reviewed: nursing, social work HEART Score - HEART Score Troponin: Troponin T < 0.010 ng/mL (0.00-0.029) 12/29/21 14:31 Results - Labs CBC & Chem 7: 12/31/21 04:09 12/31/21 04:09 Labs: Laboratory Last Values WBC 7.3 K/mm3 (4.5-11.0) 12/31/21 04:09 RBC 4.31 M/mm3 (3.65-5.03) 12/31/21 04:09 Hgb 10.7 gm/dl (11.8-15.2) L 12/31/21 04:09 Hct 33.8 % (35.5-45.6) L 12/31/21 04:09 MCV 78 fl (84-94) L 12/31/21 04:09 MCH 25 pg (28-32) L 12/31/21 04:09 MCHC 32 % (32-34) 12/31/21 04:09 RDW 17.1 % (13.2-15.2) H 12/31/21 04:09 Plt Count 165 K/mm3 (140-440) 12/31/21 04:09 Lymph % (Auto) 21.2 % (13.4-35.0) 12/30/21 11:29 [place] % (Auto) 10.1 % (0.0-7.3) H 12/30/21 11:29 Eos % (Auto) 4.3 % (0.0-4.3) 12/30/21 11:29 Baso % (Auto) 0.5 % (0.0-1.8) 12/30/21 11:29 Lymph # (Auto) 1.5 K/mm3 (1.2-5.4) 12/30/21 11:29 [place] # (Auto) 0.7 K/mm3 (0.0-0.8) 12/30/21 11:29 Eos # (Auto) 0.3 K/mm3 (0.0-0.4) 12/30/21 11:29 Baso # (Auto) 0.0 K/mm3 (0.0-0.1) 12/30/21 11:29 Seg Neutrophils % 63.9 % (40.0-70.0) 12/30/21 11:29 Seg Neutrophils # 4.5 K/mm3 (1.8-7.7) 12/30/21 11:29 PT 27.2 Sec. (12.2-14.9) H 12/31/21 04:09 INR 2.19 (0.87-1.13) H 12/31/21 04:09 APTT 88.9 Sec. (24.2-36.6) H* 12/31/21 09:17 Fibrinogen 162 mg/dl (211-480) L 12/31/21 09:17 Sodium 134 mmol/L (137-145) L 12/31/21 04:09 Potassium 4.5 mmol/L (3.6-5.0) 12/31/21 04:09 Chloride 99.3 mmol/L (98-107) 12/31/21 04:09 Carbon Dioxide 26 mmol/L (22-30) 12/31/21 04:09 Anion Gap 13 mmol/L 12/31/21 04:09 BUN 9 mg/dL (9-20) 12/31/21 04:09 Creatinine 0.8 mg/dL (0.8-1.3) 12/31/21 04:09 Estimated GFR > 60 ml/min 12/31/21 04:09 BUN/Creatinine Ratio 11 % 12/31/21 04:09 Glucose 108 mg/dL (75-100) H 12/31/21 04:09 POC Glucose 130 mg/dL (70-105) H 12/30/21 08:34 Hemoglobin A1c 7.4 % (4-6) H 12/30/21 05:03 Calcium 8.4 mg/dL (8.4-10.2) 12/31/21 04:09 Total Bilirubin 0.40 mg/dL (0.1-1.2) 12/30/21 05:03 AST 31 units/L (5-40) 12/30/21 05:03 ALT 34 units/L (7-56) 12/30/21 05:03 Alkaline Phosphatase 92 units/L (35-129) 12/30/21 05:03 Troponin T < 0.010 ng/mL (0.00-0.029) 12/29/21 14:31 Total Protein 7.5 g/dL (6.3-8.2) 12/30/21 05:03 Albumin 3.6 g/dL (3.9-5) L 12/30/21 05:03 Albumin/Globulin Ratio 0.9 % 12/30/21 05:03 Triglycerides 124 mg/dL (2-149) 12/30/21 05:03 Cholesterol 187 mg/dL (50-199) 12/30/21 05:03 LDL Cholesterol Direct 123 mg/dL (50-130) 12/30/21 05:03 HDL Cholesterol 37 mg/dL (40-59) L 12/30/21 05:03 Cholesterol/HDL Ratio 5.05 % 12/30/21 05:03 Mccoy/IV: Voiding Method Urinal Active Medications - Current Medications Current Medications: Generic Name Dose Route Start Last Admin Trade Name Freq PRN Reason Stop Dose Admin Acetaminophen 650 mg 12/29/21 22:00 Acetaminophen 325 Mg Tab PO Q4H PRN Pain MILD(1-3)/Fever >100.5/BILL Docusate Sodium 100 mg 12/31/21 22:00 Docusate Sodium 100 Mg Cap PO BID DAXA Famotidine 20 mg 12/29/21 22:00 12/31/21 09:12 Famotidine 20 Mg/2 Ml Inj IV 20 mg BID DAXA Administration Hydromorphone HCl 2 mg 12/30/21 16:28 12/31/21 11:54 Hydromorphone 2 Mg/1 Ml Inj IV 2 mg Q3H PRN Administration Pain , Severe (7-10) Argatroban 250 mg/ Sodium 250 mls @ 5.443 mls/hr 12/29/21 18:00 12/30/21 22:25 Chloride IV 0.5 mcg/kg/min TITR DAXA 5.443 mls/hr Administration Protocol 0.5 MCG/KG/MIN Sodium Chloride 1,000 mls @ 75 mls/hr 12/29/21 22:00 12/31/21 09:12 Nacl 0.45% 1000 Ml IV 75 mls/hr DIRECT DAXA Administration Sodium Chloride 1,000 mls @ 30 mls/hr 12/30/21 10:15 Nacl 0.9% 1000 Ml IV DIRECT DAXA Sodium Chloride 1,000 mls @ 30 mls/hr 12/30/21 10:15 Nacl 0.9% 1000 Ml SHEATH DIRECT DAXA Sodium Chloride 1,000 mls @ 35 mls/hr 12/30/21 10:15 12/30/21 12:45 Nacl 0.9% 1000 Ml EKOSCLUMEN 0 mls DIRECT DAXA Administration Sodium Chloride 500 mls @ 25 mls/hr 12/31/21 06:15 12/31/21 06:19 Nacl 0.9% 500 Ml REYNA-SHEATH 25 mls/hr DIRECT DAXA Administration Metformin HCl 1,000 mg 12/30/21 08:00 12/31/21 08:51 Metformin Xr 500mg Tab PO Not Given QDDIAB DAXA Morphine Sulfate 2 mg 12/29/21 23:30 12/30/21 13:55 Morphine 2 Mg/1 Ml Inj IV 2 mg Q4H PRN Administration Pain, Moderate (4-6) Ondansetron HCl 4 mg 12/29/21 22:30 Ondansetron 4 Mg/2 Ml Inj IV Q8H PRN Nausea And Vomiting Oxycodone/Acetaminophen 1 tab 12/29/21 22:30 12/30/21 15:55 Oxycodone /Acetaminophen 5-325mg Tab PO 1 tab Q6H PRN Administration Pain, Moderate (4-6) Sodium Chloride 10 ml 12/29/21 22:00 12/31/21 12:09 Sodium Chloride 0.9% 10 Ml Flush Syringe IV 10 ml BID DAXA Administration Sodium Chloride 10 ml 12/29/21 21:54 Sodium Chloride 0.9% 10 Ml Flush Syringe IV PRN PRN LINE FLUSH
[2021-12-31] MEDS: oxyCODONE /ACETAMINOPHEN 5-325MG TAB PO PRN (19:54)
[2021-12-31] MEDS: DOCUSATE SODIUM 100 MG CAP PO SCH (21:31)
[2021-12-31] MEDS ORDERED: SODIUM CHLORIDE 0.9% 1000 ML 1,000 ML IV SCH (21:45)
[2021-12-31] MEDS ORDERED: DEXTROSE 50% IN WATER (25GM) 50 ML SYRINGE IV PRN (22:45)
[2022-01-01] MEDS: HYDROmorphone 2 MG/1 ML INJ IV PRN ×3 (01:35→10:23)
[2022-01-01] MEDS: INSULIN REGULAR, HUMAN 100 UNITS/1 ML SUB-Q SCH ×2 (01:40→08:23)
[2022-01-01 05:34] VITALS: BP 140/75
[2022-01-01 06:38] LABS: Hematocrit 33.5 % (35.5-45.6); Hemoglobin 10.9 gm/dl (11.8-15.2); Mean Corpuscular HGB Conc 33 % (32-34); Mean Corpuscular Volume 77 fl (84-94); Platelet Count 182 K/mm3 (140-440); Red Blood Count 4.37 M/mm3 (3.65-5.03)
[2022-01-01 06:49] LABS: BUN/Creatinine Ratio 11; Blood Urea Nitrogen 9 mg/dL (9-20); Calcium 8.8 mg/dL (8.4-10.2); Hemolysis Index 8
[2022-01-01] MEDS: ARGATROBAN 250 MG in SODIUM CHLORIDE 0.9% 250ML 247.5 ML IV SCH (09:05)
[2022-01-01] MEDS ORDERED: FAMOTIDINE 20 MG TAB PO SCH (10:00)
--- NOTE | 2022-01-01 10:18 | Progress Note ---
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 The patient has HIT. He will be given a dose of Eliquis now with discontinuation of his argatroban in 1 hour. After this, the patient can be discharged home. Prescriptions for Eliquis and pain medication in patient's chart. I the patient will be referred in the outpatient setting to hematology for hypercoagulable work-up and follow-up with us in 1 to 2 weeks following discharge. 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 He underwent thrombolytics and intervention on his deep system with placement of a deep venous stents to open inline flow from his leg to IVC. Patient with indwelling IVC filter. At time of examination this morning, the patient has no complaints. Right groin dressing and left popliteal fossa dressing intact with no significant drainage. His back pain has significantly improved from his procedure yesterday Objective - Constitutional Vitals: Vital Signs - 12hr 12/31/21 12/31/21 01/01/22 22:50 23:45 00:00 Temperature Pulse Rate 114 H 101 H 95 H Respiratory 20 Rate Blood Pressure O2 Sat by Pulse 100 99 Oximetry 01/01/22 01/01/22 01/01/22 00:07 01:35 01:48 Temperature 97.4 F L Pulse Rate 93 H Respiratory 16 18 Rate Blood Pressure 150/87 O2 Sat by Pulse 99 99 Oximetry 01/01/22 01/01/22 01/01/22 02:05 04:15 04:44 Temperature Pulse Rate 107 H Respiratory 17 20 Rate Blood Pressure O2 Sat by Pulse 100 Oximetry 01/01/22 01/01/22 01/01/22 05:14 06:21 06:51 Temperature 98.3 F Pulse Rate 94 H Respiratory 20 17 17 Rate Blood Pressure 140/75 O2 Sat by Pulse 100 Oximetry General appearance: Present: no acute distress, obese - EENT Eyes: EOM intact ENT: hearing intact - Neck Neck: supple, normal ROM - Respiratory Respiratory effort: normal - Gastrointestinal General gastrointestinal: Present: deferred Rectal Exam: deferred - Genitourinary Male genitourinary: deferred - Psychiatric Psychiatric: appropriate mood/affect, cooperative - Labs CBC & Chem 7: 01/01/22 05:35 01/01/22 05:35 Labs: Abnormal lab results 12/31/21 12/31/21 12/31/21 Range/Units 09:17 09:17 21:33 Hgb (11.8-15.2) gm/dl Hct (35.5-45.6) % MCV (84-94) fl MCH (28-32) pg RDW (13.2-15.2) % APTT 88.9 H* 79.0 H* (24.2-36.6) Sec. Fibrinogen 162 L (211-480) mg/dl Sodium (137-145) mmol/L Chloride (98-107) mmol/L Glucose (75-100) mg/dL 01/01/22 01/01/22 01/01/22 Range/Units 05:35 05:35 08:54 Hgb 10.9 L (11.8-15.2) gm/dl Hct 33.5 L (35.5-45.6) % MCV 77 L (84-94) fl MCH 25 L (28-32) pg RDW 17.0 H (13.2-15.2) % APTT 90.7 H* (24.2-36.6) Sec. Fibrinogen (211-480) mg/dl Sodium 131 L (137-145) mmol/L Chloride 95.1 L (98-107) mmol/L Glucose 113 H (75-100) mg/dL Medications & Allergies - Medications Allergies/Adverse Reactions: Allergies heparin Allergy (Verified 12/30/21 09:22) HIT Home Medications: Home Medications Medication Instructions Recorded Confirmed Last Taken Type Apixaban [Eliquis] 5 mg PO BID 08/22/19 12/30/21 04/02/20 06:30 History 5 mg Metformin HCl [metFORMIN ER 1,000 mg PO DAILY 04/02/20 12/30/21 12/28/21 History Osmotic] Apixaban [Eliquis] 5 mg PO BID #60 01/01/22 Unknown Rx oxyCODONE /ACETAMINOPHEN [Percocet 1 tab PO Q4HR PRN #40 tab 01/01/22 Unknown Rx 5/325] Active Medications: Generic Name Dose Route Start Last Admin Trade Name Freq PRN Reason Stop Dose Admin Acetaminophen 650 mg 12/29/21 22:00 Acetaminophen 325 Mg Tab PO Q4H PRN Pain MILD(1-3)/Fever >100.5/BILL Apixaban 5 mg 01/01/22 11:00 Apixaban 5 Mg Tab PO Q12HR DAXA Protocol Dextrose 50 ml 12/31/21 22:45 Dextrose 50% In Water (25gm) 50 Ml Syringe IV Q30MIN PRN Hypoglycemia Protocol Docusate Sodium 100 mg 12/31/21 22:00 12/31/21 21:31 Docusate Sodium 100 Mg Cap PO 100 mg BID DAXA Administration Famotidine 20 mg 01/01/22 10:00 Famotidine 20 Mg Tab PO BID DAXA Hydralazine HCl 10 mg 12/31/21 17:17 12/31/21 20:28 Hydralazine 20 Mg/1 Ml Inj IV 10 mg Q4HR PRN Administration Hypertension Hydromorphone HCl 2 mg 12/30/21 16:28 01/01/22 06:21 Hydromorphone 2 Mg/1 Ml Inj IV 2 mg Q3H PRN Administration Pain , Severe (7-10) Argatroban 250 mg/ Sodium 250 mls @ 5.443 mls/hr 12/29/21 18:00 12/31/21 22:35 Chloride IV 1 mcg/kg/min TITR DAXA 10.886 mls/hr Titration Protocol 0.5 MCG/KG/MIN Sodium Chloride 1,000 mls @ 75 mls/hr 12/31/21 21:45 12/31/21 23:00 Nacl 0.9% 1000 Ml IV 75 mls/hr DIRECT DAXA Administration Insulin Human Regular 0 units 12/31/21 22:45 01/01/22 01:40 Insulin Regular, Human 100 Units/1 Ml SUB-Q Not Given ACHS DAXA Protocol Morphine Sulfate 2 mg 12/29/21 23:30 12/30/21 13:55 Morphine 2 Mg/1 Ml Inj IV 2 mg Q4H PRN Administration Pain, Moderate (4-6) Ondansetron HCl 4 mg 12/29/21 22:30 Ondansetron 4 Mg/2 Ml Inj IV Q8H PRN Nausea And Vomiting Oxycodone/Acetaminophen 1 tab 12/29/21 22:30 12/31/21 19:54 Oxycodone /Acetaminophen 5-325mg Tab PO 1 tab Q6H PRN Administration Pain, Moderate (4-6) Sodium Chloride 10 ml 12/29/21 22:00 12/31/21 21:31 Sodium Chloride 0.9% 10 Ml Flush Syringe IV 10 ml BID DAXA Administration Sodium Chloride 10 ml 12/29/21 21:54 Sodium Chloride 0.9% 10 Ml Flush Syringe IV PRN PRN LINE FLUSH HEART Score - HEART Score Troponin: Troponin T < 0.010 ng/mL (0.00-0.029) 12/29/21 14:31
[2022-01-01] MEDS: DOCUSATE SODIUM 100 MG CAP PO SCH (10:24)
[2022-01-01 10:55] LABS: Hematocrit 34.2 % (35.5-45.6); Hemoglobin 11.1 gm/dl (11.8-15.2); Mean Corpuscular HGB Conc 33 % (32-34); Mean Corpuscular Volume 77 fl (84-94); Platelet Count 176 K/mm3 (140-440); Red Blood Count 4.45 M/mm3 (3.65-5.03)
[2022-01-01] MEDS ORDERED: APIXABAN 5 MG TAB PO SCH (11:00)
[2022-01-01 11:09] LABS: INR 2.88 (0.87-1.13)
--- NOTE | 2022-01-01 12:32 | Progress Note ---
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 01/01/22: Reviewed Vascular note and agree with plan. Patient does not need follow up with me. Follow up with vascular and continue management of CARA as outpatient as previous. Will sign off. 1. Continue NIV at night for CARA 2. Vascular to remove catheters at some point today 3. Anticoagulation with non heparin drugs given HIT 4. Return to floor once catheter out and monitoring time has ended. 5. Weight loss if possible. Subjective Date of service: 01/01/22 Principal diagnosis: Extensive iliofemoral DVT left side complicated Interval history: Successful transfer out of unit. Objective - Constitutional Vitals: Vital Signs - 12hr 01/01/22 01/01/22 01/01/22 01:35 01:48 02:05 Temperature Pulse Rate Respiratory 18 17 Rate Blood Pressure O2 Sat by Pulse 99 Oximetry 01/01/22 01/01/22 01/01/22 04:15 04:44 05:14 Temperature 98.3 F Pulse Rate 107 H 94 H Respiratory 20 20 Rate Blood Pressure 140/75 O2 Sat by Pulse 100 100 Oximetry 01/01/22 01/01/22 01/01/22 06:21 06:51 10:23 Temperature Pulse Rate Respiratory 17 17 20 Rate Blood Pressure O2 Sat by Pulse Oximetry - Labs CBC & Chem 7: 01/01/22 08:54 01/01/22 08:54 Labs: Abnormal lab results 12/31/21 01/01/22 01/01/22 Range/Units 21:33 05:35 05:35 Hgb 10.9 L (11.8-15.2) gm/dl Hct 33.5 L (35.5-45.6) % MCV 77 L (84-94) fl MCH 25 L (28-32) pg RDW 17.0 H (13.2-15.2) % PT (12.2-14.9) Sec. INR (0.87-1.13) APTT 79.0 H* (24.2-36.6) Sec. Sodium 131 L (137-145) mmol/L Chloride 95.1 L (98-107) mmol/L Creatinine (0.8-1.3) mg/dL Glucose 113 H (75-100) mg/dL 01/01/22 01/01/22 01/01/22 Range/Units 08:54 08:54 08:54 Hgb 11.1 L (11.8-15.2) gm/dl Hct 34.2 L (35.5-45.6) % MCV 77 L (84-94) fl MCH 25 L (28-32) pg RDW 17.0 H (13.2-15.2) % PT 34.0 H (12.2-14.9) Sec. INR 2.88 H (0.87-1.13) APTT 90.7 H* (24.2-36.6) Sec. Sodium (137-145) mmol/L Chloride (98-107) mmol/L Creatinine (0.8-1.3) mg/dL Glucose (75-100) mg/dL 01/01/22 Range/Units 08:54 Hgb (11.8-15.2) gm/dl Hct (35.5-45.6) % MCV (84-94) fl MCH (28-32) pg RDW (13.2-15.2) % PT (12.2-14.9) Sec. INR (0.87-1.13) APTT (24.2-36.6) Sec. Sodium (137-145) mmol/L Chloride (98-107) mmol/L Creatinine 0.7 L (0.8-1.3) mg/dL Glucose (75-100) mg/dL Medications & Allergies - Medications Allergies/Adverse Reactions: Allergies heparin Allergy (Verified 12/30/21 09:22) HIT Home Medications: Home Medications Medication Instructions Recorded Confirmed Last Taken Type Apixaban [Eliquis] 5 mg PO BID 08/22/19 12/30/21 04/02/20 06:30 History 5 mg Metformin HCl [metFORMIN ER 1,000 mg PO DAILY 04/02/20 12/30/21 12/28/21 History Osmotic] Apixaban [Eliquis] 5 mg PO BID #60 01/01/22 Unknown Rx oxyCODONE /ACETAMINOPHEN [Percocet 1 tab PO Q4HR PRN #40 tab 01/01/22 Unknown Rx 5/325] Active Medications: Generic Name Dose Route Start Last Admin Trade Name Freq PRN Reason Stop Dose Admin Acetaminophen 650 mg 12/29/21 22:00 Acetaminophen 325 Mg Tab PO Q4H PRN Pain MILD(1-3)/Fever >100.5/BILL Apixaban 5 mg 01/01/22 11:00 01/01/22 11:30 Apixaban 5 Mg Tab PO 5 mg Q12HR DAXA Administration Protocol Dextrose 50 ml 12/31/21 22:45 Dextrose 50% In Water (25gm) 50 Ml Syringe IV Q30MIN PRN Hypoglycemia Protocol Docusate Sodium 100 mg 12/31/21 22:00 01/01/22 10:24 Docusate Sodium 100 Mg Cap PO 100 mg BID DAXA Administration Famotidine 20 mg 01/01/22 10:00 01/01/22 10:24 Famotidine 20 Mg Tab PO 20 mg BID DAXA Administration Hydralazine HCl 10 mg 12/31/21 17:17 12/31/21 20:28 Hydralazine 20 Mg/1 Ml Inj IV 10 mg Q4HR PRN Administration Hypertension Hydromorphone HCl 2 mg 12/30/21 16:28 01/01/22 10:23 Hydromorphone 2 Mg/1 Ml Inj IV 2 mg Q3H PRN Administration Pain , Severe (7-10) Sodium Chloride 1,000 mls @ 75 mls/hr 12/31/21 21:45 12/31/21 23:00 Nacl 0.9% 1000 Ml IV 75 mls/hr DIRECT DAXA Administration Insulin Human Regular 0 units 12/31/21 22:45 01/01/22 08:23 Insulin Regular, Human 100 Units/1 Ml SUB-Q Not Given ACHS [facility] Protocol Morphine Sulfate 2 mg 12/29/21 23:30 12/30/21 13:55 Morphine 2 Mg/1 Ml Inj IV 2 mg Q4H PRN Administration Pain, Moderate (4-6) Ondansetron HCl 4 mg 12/29/21 22:30 Ondansetron 4 Mg/2 Ml Inj IV Q8H PRN Nausea And Vomiting Oxycodone/Acetaminophen 1 tab 12/29/21 22:30 12/31/21 19:54 Oxycodone /Acetaminophen 5-325mg Tab PO 1 tab Q6H PRN Administration Pain, Moderate (4-6) Sodium Chloride 10 ml 12/29/21 22:00 12/31/21 21:31 Sodium Chloride 0.9% 10 Ml Flush Syringe IV 10 ml BID DAXA Administration Sodium Chloride 10 ml 12/29/21 21:54 Sodium Chloride 0.9% 10 Ml Flush Syringe IV PRN PRN LINE FLUSH HEART Score - HEART Score Troponin: Troponin T < 0.010 ng/mL (0.00-0.029) 12/29/21 14:31
--- NOTE | 2022-01-01 13:48 | Discharge Summary ---
Providers - Providers Date of Admission: 12/29/21 22:00 Date of discharge: 01/01/22 Attending physician: RUFINA JONES MD 12/29/21 21:54 Consult to Physician [CONS] Routine Comment: Consulting Provider: HORACE JAY Physician Instructions: Reason For Exam: DVT and thrombectomy 12/30/21 16:28 Consult to Physician [CONS] Routine Comment: noted/ bharath Consulting Provider: JANNY EDGAR Physician Instructions: Reason For Exam: ICU mgt Primary care physician: ROMERO RIDDLE MD Hospitalization Reason for admission: Left lower extremity swelling and pain Condition: Stable Hospital course: History Interval history: This is a 41-year-old male with morbid obesity, prediabetic, 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 Jay. Patient was admitted to the hospital service with consult to vascular surgery with plan for thrombectomy. Hospital course to date: 12/30: patient transferred to ICU s/p thrombectomy close monitoring 12/31: Patient taken to [facility] for removal of EKOS catheter. Will need to stay flat for 4 hours post and possible transfer to floor. No acute events overnight. 01/01: Patient with history of extensive DVT recurrence currently significantly improved following EKOS + thrombolytic therapy. Discussed with Dr. Jay, [facility] vascular surgeon, who stated that patient had both acute and chronic occlusions in his common iliac veins. Stenting was completed by vascular surgery. Given his history of HIT patient was treated with argatroban and has been transitioned to Eliquis. Patient will be discharged home with prescriptions for Eliquis and pain medication. He was advised to follow-up with Dr. Jay as an outpatient and will likely need hypercoagulable work-up which Dr. Jay will make referral to hematology. Assessment and Plan: Neuro: NAD -Avoid delirium -Reorientation as needed -Maintain sleep-wake cycle -As needed analgesia Cardiac: NAD -Blood pressure monitoring per protocol -Hydral PRN Respiratory: NAD -Supplemental oxygen as needed -pulmonary hygiene -SPO2 monitoring GI: Morbid obesity, mild protein calorie malnutrition -24 hours +644 mL -PPI -NTR consulted for tube feedings -BR: colace : Slight hyponatremia -Strict intake and output -Renally dose medications -Avoid nephrotoxic medications -Daily weights -Trend BMP ID: NAD -f/u blood culture -Monitor WBC and temperature curve Endo: h/o "Prediabetes" -Hemoglobin A1c 7.4 -Avoid hypoglycemia -Hold metformin -Accucheck ACHS -SSI Heme: Subtherapeutic INR, acute DVT of left lower extremity (proximal femoral vein), h/o DVT, HIT, s/p IVC -CTA chest showed no evidence of pulmonary embolism -Bilateral lower extremity Doppler ultrasound showed acute appearing DVT throughout the left lower extremity, no evidence of DVT on the right side -Of note patient was previously prescribed warfarin 10 mg and patient endorses compliance however he did endorse consuming various foods continue to daily with warfarin -Vascular surgery consulted, appreciate recommendations -S/p thrombectomy 12/30 -System anticoagulation with argatroban drip -Trend CBC -Transfuse hemoglobin less than 7 -Monitor for signs of bleeding -SCDs to BLE while in bed -Per vasular: The patient will need referral to hematology given his repeated DVTs. He will remain on Coumadin. The patient will ultimately need removal of the filter and elongation of the stents given the extensive scar formation around the level of the filter at the feet. Disposition: 01 HOME / SELF CARE / HOMELESS Final Discharge Diagnosis (Prints w/discharge instructions): extensive left lower extremity deep vein thrombosis Time spent for discharge: 35 Core Measure Documentation - Palliative Care Palliative Care/ Comfort Measures: Not Applicable - Core Measures Any of the following diagnoses?: DVT/PE - VTE Discharge Requirements Deep Vein Thrombosis/Pulmonary Embolism Present on Admission: Yes Has pt received <5 days of overlap therapy or INR<2.0: Yes Anticoagulant overlap therapy prescribed at discharge: No Contraindication No Overlap Therapy order at [facility]: Medical Contraindication (Discharged home on Eliquis, not indicated) Exam - Physical Exam Narrative exam: General appearance: Present: no acute distress, well-nourished - EENT Eyes: Present: PERRL ENT: hearing intact, clear oral mucosa - Neck Neck: Present: supple, normal ROM - Respiratory Respiratory effort: normal Respiratory: bilateral: CTA - Cardiovascular Heart rate: 78 Rhythm: regular Heart Sounds: Present: S1 & S2. Absent: rub, click - Extremities Extremities: no ischemia, pulses intact, pulses symmetrical, No edema Peripheral Pulses: within normal limits - Abdominal General gastrointestinal: Present: soft, non-tender, non-distended, normal bowel sounds Male genitourinary: Present: normal - Integumentary Integumentary: Present: clear, warm, dry - Musculoskeletal Musculoskeletal: gait normal, strength equal bilaterally - Psychiatric Psychiatric: appropriate mood/affect, intact judgment & insight - Neurologic Neurologic: CNII-XII intact, moves all extremities - Allied Health Allied health notes reviewed: nursing, case management - Constitutional Vitals: Temp Pulse Resp BP Pulse Ox 98.3 F 94 H 20 140/75 100 01/01/22 05:14 01/01/22 05:14 01/01/22 10:23 01/01/22 05:14 01/01/22 05:14 Plan Prescriptions: Apixaban [Eliquis] 5 mg PO BID #60 oxyCODONE /ACETAMINOPHEN [Percocet 5/325] 1 tab PO Q4HR PRN #40 tab PRN Reason: Pain , Severe (7-10)
== END 2022-01-01 14:40 | disposition home or self-care (01) | DRG 253 ==
LOC: ED 11:02 → 4A 22:00 → CC1 12-30 12:21 → 4A 12-31 23:21
PROVIDERS: ADMIT Internal Medicine; ATTEND Internal Medicine
PROC: 067D3ZZ Dilation of Left Common Iliac Vein, Percutaneous Approach (ICD-10-PCS; principal; 2021-12-30)
PROC: 067G3ZZ Dilation of Left External Iliac Vein, Percutaneous Approach (ICD-10-PCS; 2021-12-30)
PROC: 067N3ZZ Dilation of Left Femoral Vein, Percutaneous Approach (ICD-10-PCS; 2021-12-30)
PROC: B51C1ZZ Fluoroscopy of Left Lower Extremity Veins using Low Osmolar Contrast (ICD-10-PCS; 2021-12-30)
PROC: B5191ZZ Fluoroscopy of Inferior Vena Cava using Low Osmolar Contrast (ICD-10-PCS; 2021-12-30)
PROC: 5A09457 Assistance with Respiratory Ventilation, 24-96 Consecutive Hours, Continuous Positive Airway Pressure (ICD-10-PCS; 2021-12-30)
PROC: 067G3DZ Dilation of Left External Iliac Vein with Intraluminal Device, Percutaneous Approach (ICD-10-PCS; 2021-12-31)
PROC: 067D3ZZ Dilation of Left Common Iliac Vein, Percutaneous Approach (ICD-10-PCS; 2021-12-31)
PROC: 067G3ZZ Dilation of Left External Iliac Vein, Percutaneous Approach (ICD-10-PCS; 2021-12-31)
PROC: 067N3ZZ Dilation of Left Femoral Vein, Percutaneous Approach (ICD-10-PCS; 2021-12-31)
DX: I82.402 Acute embolism and thrombosis of unspecified deep veins of left lower extremity (principal); Z68.43 Body mass index [BMI] 50.0-59.9, adult; E44.1 Mild protein-calorie malnutrition; E87.1 Hypo-osmolality and hyponatremia; E66.01 Morbid (severe) obesity due to excess calories; Z71.3 Dietary counseling and surveillance; Z86.718 Personal history of other venous thrombosis and embolism; M19.90 Unspecified osteoarthritis, unspecified site; E11.9 Type 2 diabetes mellitus without complications
CPT/HCPCS: 36415; 37212; 37214; 37238; 37239; 37252; 37253; 71045; 71275; 75820; 75822; 80048; 80053; 80061; 82565; 82962; 83036; 84484; 85025; 85027; 85384; 85610; 85730; 93005; 93970; 94660; G0378; J3490; C1725; C1751; C1757; C1769; C1876; C1887; C1894; J0360; J0583; J0883; J1170; J2250; J2270; J2405; J2997; J3010; J7030; J7040; J7050; Q9967

== ENCOUNTER 2022-01-27 06:30 | Day surgery (SDC) | payer OTHER ==
[2022-01-27] MEDS ORDERED: SODIUM CHLORIDE 0.9% 1000 ML 1,000 ML IV SCH (07:00)
[2022-01-27 07:16] LABS: Basophils % (Auto) 0.8 % (0.0-1.8); Eosinophils # (Auto) 0.3 K/mm3 (0.0-0.4); Eosinophils % (Auto) 5.7 % (0.0-4.3); Hematocrit 33.7 % (35.5-45.6); Lymphocytes # (Auto) 1.7 K/mm3 (1.2-5.4); Lymphocytes % (Auto) 30.7 % (13.4-35.0); Mean Corpuscular HGB Conc 33 % (32-34); Mean Corpuscular Volume 80 fl (84-94); Monocytes # (Auto) 0.7 K/mm3 (0.0-0.8); Monocytes % (Auto) 12.8 % (0.0-7.3); Platelet Count 272 K/mm3 (140-440); Red Blood Count 4.24 M/mm3 (3.65-5.03); Red Cell Distribution Width 17.8 % (13.2-15.2)
--- NOTE | 2022-01-27 07:21 | Anesthesia Consultation ---
Anesthesia Consult and Med Hx Date of service: 01/27/22 - Airway Anesthetic Teeth Evaluation: Good ROM Head & Neck: Adequate Mental/Hyoid Distance: Adequate Mallampati Class: Class III Intubation Access Assessment: Possibly Difficult - Pulmonary Exam CTA: Yes - Cardiac Exam Cardiac Exam: RRR - Pre-Operative Health Status ASA Pre-Surgery Classification: ASA3 Proposed Anesthetic Plan: General, MAC - Pulmonary Hx Smoking: Yes Hx Asthma: No Hx Respiratory Symptoms: Yes (post-nasal drip ) COPD: No Home Oxygen Therapy: No Hx Pneumonia: Yes Hx Sleep Apnea: Yes (uses CPAP every night) - Cardiovascular System Hx Hypertension: No Hx Cardia Arrhythmia: No - Central Nervous System Hx Back Pain: Yes Hx Psychiatric Problems: No - Gastrointestinal Hx Gastroesophageal Reflux Disease: No - Endocrine Hx Renal Disease: No Hx Liver Disease: No Hx Thyroid Disease: No - Hematic Hx Anemia: No - Other Systems Hx Alcohol Use: No Hx Cancer: No Hx Obesity: Yes (BMI 51.5) - Additional Comments Anesthesia Medical History Comments: Patient with chronic DVTs. Previous thrombectomies done under conscious sedation per reports. Have discussed with Dr. Mercedes need to discuss anesthetic plan with Dr. Jay.
[2022-01-27 07:27] LABS: INR 0.97 (0.87-1.13); Partial Thromboplastin Time 30.2 Sec. (24.2-36.6)
[2022-01-27 07:28] LABS: BUN/Creatinine Ratio 16; Blood Urea Nitrogen 16 mg/dL (9-20); Calcium 9.2 mg/dL (8.4-10.2); Hemolysis Index 48
--- NOTE | 2022-01-27 07:38 | Anesthesia Day of Surgery ---
Anesthesia Day of Surgery - Day of Surgery Patient Examined: Yes Patient H&P Reviewed: Yes Patient is NPO: Yes
[2022-01-27] MEDS ORDERED: ePHEDrine SULFATE 50 MG/1 ML INJ ONE (07:49)
[2022-01-27] MEDS ORDERED: KETAMINE/STERILE WATER 50 MG/ML SYRINGE ONE (07:49)
[2022-01-27] MEDS ORDERED: MIDAZOLAM 5 MG/5 ML INJ MDV IV ONE (07:49)
[2022-01-27] MEDS ORDERED: SODIUM CHLORIDE IRRI 500 ML 1,000 ML IR ONE (08:33)
[2022-01-27] MEDS ORDERED: LIDOCAINE (2%) 20 MG/1 ML VIAL 50 ML MDV INFILTRATI ONE (08:33)
[2022-01-27] MEDS ORDERED: ceFAZolin/Water 2 GM/20 ML 2 GM/20 ML SYRINGE IV ONE (08:35)
[2022-01-27] MEDS ORDERED: SODIUM CHLORIDE 0.9% 250ML 250 ML ONE (08:41)
[2022-01-27] MEDS ORDERED: SODIUM CHLORIDE 0.9% 100 ML ONE (08:54)
[2022-01-27] MEDS ORDERED: fentaNYL 100 MCG/2 ML INJ ONE (09:02)
[2022-01-27] MEDS: BIVALIRUDIN 250 MG INJ IV ONE ×2 (09:17→10:34)
[2022-01-27] MEDS ORDERED: oxyCODONE /ACETAMINOPHEN 5-325MG TAB PO ONE (11:55)
[2022-01-27] MEDS ORDERED: MORPHINE 2 MG/1 ML INJ IV ONE (11:55)
--- NOTE | 2022-01-27 13:34 | Short Stay Summary ---
Short Stay Documentation Date of service: 01/27/22 - History Principal diagnosis: DVT left leg H&P: obtained from office - Allergies and Medications Current Medications: Allergies heparin Allergy (Verified 12/30/21 09:22) HIT Home Medications Medication Instructions Recorded Confirmed Last Taken Type Metformin HCl [metFORMIN ER 500 mg PO BID 04/02/20 01/27/22 01/26/22 History Osmotic] Apixaban [Eliquis] 5 mg PO BID #60 01/01/22 01/27/22 01/26/22 Rx 5 mg HYDROcodone/APAP 5-325 [[place] 2 tab PO Q6H PRN 01/27/22 01/27/22 01/26/22 History 5-325 mg TAB] 2 tab Active Medications Sodium Chloride (Nacl 0.9% 1000 Ml) 1,000 mls @ 42 mls/hr IV DIRECT DAXA Stop: 01/27/22 20:00 Last Admin: 01/27/22 07:43 Dose: 42 mls/hr - Brief post op/procedure progress note Date of procedure: 01/27/22 Pre-op diagnosis: DVT left leg Post-op diagnosis: same Procedure: Thrombectomy, venoplasty Anesthesia: MAC Surgeon: HORACE STEEL Condition: stable - Disposition Condition at discharge: Good Disposition: 01 HOME / SELF CARE / HOMELESS Short Stay Discharge Plan Activity: advance as tolerated Weight Bearing Status: Weight Bear as Tolerated Diet: regular Wound: keep clean and dry, per your surgeon's advice Follow up with: ROMERO RIDDLE MD [Primary Care Provider] - 7 Days
--- NOTE | 2022-01-27 13:43 | Operative Report ---
Operative Report Operative Report: Exam: Bilateral lower extremity venogram, venoplasty, thrombectomy of left iliac veins Clinical indication: Patient with a history of recurrent DVTs who had previously undergone thrombolytics and recanalization of his left common iliac vein and external iliac vein. Patient was doing well postoperatively however, subsequently developed reocclusion of his common and external iliac veins with in-stent thrombus development. Date: 01/27/2022 Procedure: Following an explanation of the risk, benefits and alternatives; written informed consent was obtained. The patient was brought to the angiographic suite and placed in supine position on the examination table. Initial ultrasound evaluation of his right groin demonstrated a patent right common femoral vein. The patient's right groin was prepped and draped in the usual sterile fashion. 1% lidocaine was used for anesthesia. Under ultrasound guidance, the right common femoral vein was cannulated with a 6 7 cm 18-gauge needle. A 0.035 guidewire was advanced centrally. The needle was removed and a 5 Ethiopian sheath placed. On the left, access to the femoral vein was precluded secondary to stent placement. Attempts to cannulate the proximal femoral vein were unsuccessful secondary to angulation. Initial evaluation of the patient's right neck demonstrated a patent right internal jugular vein. The patient's right neck and chest wall were prepped and draped in the usual sterile fashion. 1% lidocaine was used for anesthesia. Under ultrasound guidance, the right internal jugular vein was cannulated with a 7 cm 18-gauge needle. A 0.035 guidewire was advanced distally under fluoroscopy. The needle was removed and a 5 Ethiopian sheath placed. Contrast was injected to the sheath on the right which demonstrates that the previously placed ends are widely patent. There is flow within the IVC passed a previously placed IVC filter. The 5 Ethiopian sheath was upsized to a 7 Ethiopian 90 cm sheath which was advanced over the guidewire from the right IJ to the IVC filter. A vertebral catheter was then advanced over the guidewire through the sheath and selective cannulation of the left system was performed. Together the catheter and guidewire were advanced in the proximal femoral vein. This demonstrates that the proximal femoral vein and deep femoral vein appear to be widely patent. There is occlusion at the level of the common femoral vein with massive collateral formation. Additional imaging performed within the stent demonstrating at the proximal end of the stent below the IVC filter, there is significant stenosis. The 7 Ethiopian sheath was exchanged for an 11 Ethiopian IVC filter removal sheath which was advanced to just proximal to the previously placed IVC filter under fluoroscopy. The trocar was removed. The Cook retrieval snare would not fully deploy. Only a 1cm retrieval snare was otherwise available in the hospital and attempts to retrieve the IVC filter were unsuccessful. A 7 Ethiopian sheath was then exchanged over the guidewire to a 12 Ethiopian sheath. The trocar was removed. A 10 mm x 40 mm balloon was then advanced over the guidewire through the sheath. The balloon was insufflated to reduce the stenosis at the proximal aspect of the patient's previously placed stents on the left which is just below the IVC filter. The 7 Ethiopian sheath was then removed. A 12 Ethiopian penumbra thrombectomy catheter was then advanced over the guidewire and thrombectomy was performed throughout the length of the common iliac vein, external iliac vein and common femoral vein. Post thrombectomy imaging demonstrated luminal flow throughout the common and external iliac veins however, they are diminutive in size. The confluence of common iliac vein and IVC is somewhat diminutive and this may represent some degree of collateral involvement. At this point, the catheters, guidewires and sheaths were removed and hemostasis achieved using manual compression at all 3 sites. Sterile dressings were applied. The patient tolerated the procedure well. There were no immediate postprocedure complications. Sedation was provided by anesthesia services. Continuous cardiopulmonary monitoring is utilized. Impression: 1) Right lower extremity venography demonstrated previously placed stents are widely patent. No flow-limiting stenosis are identified within the right common femoral vein, external iliac vein, common iliac vein and IVC. The previously placed filter in the IVC does not have a significant thrombus burden. 2) Left lower extremity venography performed from a right IJ approach demonstrate complete occlusion of stents on the left with stenosis at the confluence of common iliac vein and IVC. 3) Attempts to remove IVC filter were unsuccessful. 4) Venoplasty of the common iliac vein stenosis. 5) Thrombectomy of the common iliac vein and external iliac vein. 6) The patient will need additional evaluation with a CT of the abdomen and pelvis to ensure that the previous interventions extend appropriately into the IVC. Following his CT, the patient will follow-up in clinic and be scheduled for first advanced IVC filter removal options followed by second reconstruction of his common iliac veins predominantly on the left and venoplasty of the common and external iliac veins.
[2022-01-27 14:42] VITALS: BP 128/90
--- NOTE | 2022-01-27 16:37 | Post Anesthesia Evaluation ---
- Post Anesthesia Evaluation Patient Participated: Yes Airway Patent: Yes Stable Respiratory Function: Yes Nausea/Vomiting: No Temp > 96.8F: Yes Pain Manageable: Yes Adequeate Hydration: Yes Anesthesia Complications: No Block Receding Appropriately: Not Applicable Patient on Ventilator: No
== END 2022-01-27 15:28 | disposition home or self-care (01) ==
LOC: CATHLABREC 06:30
PROVIDERS: ATTEND Radiology Diagnostic Radiology
DX: I87.323 Chronic venous hypertension (idiopathic) with inflammation of bilateral lower extremity (principal); I87.1 Compression of vein; I89.0 Lymphedema, not elsewhere classified; E66.01 Morbid (severe) obesity due to excess calories; M19.90 Unspecified osteoarthritis, unspecified site; G47.33 Obstructive sleep apnea (adult) (pediatric); Z88.8 Allergy status to other drugs, medicaments and biological substances; Z79.899 Other long term (current) drug therapy; Z87.01 Personal history of pneumonia (recurrent); Z98.890 Other specified postprocedural states; Z68.43 Body mass index [BMI] 50.0-59.9, adult; Z86.718 Personal history of other venous thrombosis and embolism
CPT/HCPCS: 36415; 37187; 37193; 37248; 75822; 80048; 85025; 85610; 85730; C1725; C1751; C1769; C1773; C1887; J0583; J0690; J2250; J2270; J2704; J3010; J3490; J7030; J7050; J7121; Q9967

== ENCOUNTER 2022-02-10 08:56 | Day surgery (SDC) | payer OTHER ==
[2022-02-10] MEDS ORDERED: SODIUM CHLORIDE 0.9% 1000 ML 1,000 ML IV SCH (09:30)
--- NOTE | 2022-02-10 09:38 | Anesthesia Day of Surgery ---
Anesthesia Day of Surgery - Day of Surgery Patient Examined: Yes Patient H&P Reviewed: Yes Patient is NPO: Yes
--- NOTE | 2022-02-10 09:40 | Anesthesia Consultation ---
Anesthesia Consult and Med Hx Date of service: 02/10/22 - Airway Anesthetic Teeth Evaluation: Good ROM Head & Neck: Adequate Mental/Hyoid Distance: Adequate Mallampati Class: Class II Intubation Access Assessment: Probably Good - Pre-Operative Health Status ASA Pre-Surgery Classification: ASA3 Proposed Anesthetic Plan: MAC (GA if needed) - Pulmonary Hx Smoking: Yes Hx Asthma: No COPD: No Hx Pneumonia: Yes Hx Sleep Apnea: Yes (uses CPAP every night) - Cardiovascular System Hx Hypertension: No Hx Cardia Arrhythmia: No - Central Nervous System Hx Back Pain: Yes Hx Psychiatric Problems: No - Gastrointestinal Hx Gastroesophageal Reflux Disease: No - Endocrine Hx Renal Disease: No Hx Liver Disease: No Hx Thyroid Disease: No - Hematic Hx Anemia: No Hx Sickle Cell Disease: No - Other Systems Hx Alcohol Use: No Hx Cancer: No Hx Obesity: Yes (BMI 51.5) - Additional Comments Anesthesia Medical History Comments: Was here [id number]
[2022-02-10 10:21] LABS: BUN/Creatinine Ratio 15; Blood Urea Nitrogen 15 mg/dL (9-20); Calcium 8.9 mg/dL (8.4-10.2); Hemolysis Index 95
[2022-02-10] MEDS ORDERED: HEPARIN/NS 5000 UNIT/500ML 0 ML IR ONE (10:26)
[2022-02-10] MEDS ORDERED: LIDOCAINE (1%) 10 MG/1 ML VIAL 20 ML MDV ONE ×2 (10:27→11:17)
[2022-02-10 10:30] LABS: Hematocrit 32.1 % (35.5-45.6); Hemoglobin 10.3 gm/dl (11.8-15.2); Mean Corpuscular HGB Conc 32 % (32-34); Mean Corpuscular Volume 80 fl (84-94); Platelet Count 342 K/mm3 (140-440); Red Blood Count 4.03 M/mm3 (3.65-5.03); Red Cell Distribution Width 17.9 % (13.2-15.2)
[2022-02-10] MEDS ORDERED: SODIUM CHLORIDE 0.9% 1000 ML 1,000 ML ONE ×2 (10:43→12:27)
[2022-02-10] MEDS ORDERED: SODIUM CHLORIDE 0.9% 0 ML ONE (10:45)
[2022-02-10] MEDS ORDERED: BIVALIRUDIN 250 MG INJ IV ONE (10:45)
[2022-02-10] MEDS ORDERED: WATER FOR INJ Sterile (PF) 0 ML ONE (10:45)
[2022-02-10] MEDS ORDERED: propofoL 200 MG/20 ML VIAL IV ONE (10:50)
[2022-02-10 11:14] LABS: INR 0.97 (0.87-1.13)
[2022-02-10 11:16] LABS: Partial Thromboplastin Time 36.5 Sec. (24.2-36.6)
[2022-02-10] MEDS ORDERED: KETAMINE/STERILE WATER 50 MG/ML SYRINGE ONE ×2 (11:56→13:06)
[2022-02-10] MEDS ORDERED: MIDAZOLAM 2 MG/2 ML INJ ONE (11:56)
[2022-02-10] MEDS ORDERED: SODIUM CHLORIDE IRRI 500 ML 500 ML IR ONE (12:52)
--- NOTE | 2022-02-10 13:21 | Short Stay Summary ---
Short Stay Documentation Date of service: 02/10/22 - History Principal diagnosis: DVT, retained IVC filter H&P: obtained from office - Allergies and Medications Current Medications: Allergies heparin Allergy (Verified 12/30/21 09:22) HIT Home Medications Medication Instructions Recorded Confirmed Last Taken Type Metformin HCl [metFORMIN ER 500 mg PO BID 04/02/20 02/10/22 02/09/22 History Osmotic] Apixaban [Eliquis] 5 mg PO BID #60 01/01/22 02/10/22 02/10/22 Rx HYDROcodone/APAP 5-325 [[place] 2 tab PO Q6H PRN 01/27/22 02/10/22 02/09/22 History 5-325 mg TAB] Active Medications Sodium Chloride (Nacl 0.9% 1000 Ml) 1,000 mls @ 25 mls/hr IV DIRECT DAXA Last Admin: 02/10/22 11:21 Dose: 1,000 mls - Brief post op/procedure progress note Date of procedure: 02/10/22 Pre-op diagnosis: DVT, retained IVC filter now on anticoagulation Post-op diagnosis: same Procedure: Attempted IVC filter removal Anesthesia: MAC Surgeon: HORACE STEEL Estimated blood loss: minimal Pathology: none Condition: stable - Disposition Condition at discharge: Good Disposition: 01 HOME / SELF CARE / HOMELESS Short Stay Discharge Plan Activity: advance as tolerated Weight Bearing Status: Weight Bear as Tolerated Diet: regular Wound: keep clean and dry, per your surgeon's advice Follow up with: ROMERO RIDDLE MD [Primary Care Provider] - 7 Days
--- NOTE | 2022-02-10 13:27 | Operative Report ---
Operative Report Operative Report: Exam: IVC venogram, venoplasty, tempted IVC filter removal Clinical indication: Patient with a history of longstanding IVC filter that is significantly infrarenal. Patient now able to tolerate anticoagulation with scarring at the posterior aspect of the filter causing luminal narrowing. Date: 02/10/2022 Procedure: Following an explanation of the risk, benefits and alternatives; written informed consent was obtained. The patient was brought to the angiographic suite and placed in supine position on the examination table. Initial ultrasound evaluation of the neck demonstrated a patent right internal jugular vein. The patient's right neck and chest wall were prepped and draped in the usual sterile fashion. 1% lidocaine was used for anesthesia. Under ultrasound guidance, the right internal jugular vein was cannulated with a 7 cm 18-gauge needle. A 0.035 guidewire was advanced into the IVC under fluoroscopy. The needle was removed and a 5 Nigerien sheath placed. Following serial dilation over the guidewire, an 11 Nigerien IVC filter removal sheath was then advanced over the guidewire under fluoroscopy and positioned to just proximal to the filter. At this point, the patient's sedation under the guidance of anesthesia services became somewhat inadequate and the procedure was temporarily paused to allow placement of an LMA by anesthesia services. The patient's neck and indwelling removal sheath were reprepped and redraped. Contrast was injected. The IVC is patent. There is no significant retained intraluminal thrombus within the filter. Imaging of the filter performed and obliquities demonstrates that there appears to be some adherence of the filter of the posterior wall. Initial attempts to ensnare the hook with a Cook retrieval set were unsuccessful. Ultimately, 0.035 guidewire was guided past the filter. Venoplasty was performed in multiple locations in attempt to free up the proximal posterior wall adhesions and took. Additional attempts to snare the hook with the [employer] retrieval system with angulation were unsuccessful given the degree of scarring at the hook and posterior wall. Ultimately, the the retrieval system and sheath were removed and hemostasis achieved at the right neck using manual compression. A sterile dressing was applied. I the patient tolerated the procedure well. There were no immediate postprocedure complications. Sedation was provided by anesthesia services. Continuous cardiopulmonary monitoring was utilized. Impression: 1) IVC venogram demonstrating scarring with hook embedded in the wall as well as the proximal posterior aspect of the filter. 2) Venoplasty in an attempt to displace the hook. 3) Attempted IVC filter removal. 4) The patient is returning next week for elongation of his previously placed stents. At that time, we will attempt to retrieve the filter using endobronchial forceps. If this is unsuccessful, the stents will be advanced and placed through the filter and double barrel fashion to allow adequate flow from the lower extremities centrally.
[2022-02-10 16:02] VITALS: BP 149/87
== END 2022-02-10 08:57 | disposition home or self-care (01) ==
LOC: CATH 08:56
PROVIDERS: ATTEND Radiology Diagnostic Radiology
DX: I87.1 Compression of vein (principal); I89.0 Lymphedema, not elsewhere classified; E66.01 Morbid (severe) obesity due to excess calories; G47.30 Sleep apnea, unspecified; M19.90 Unspecified osteoarthritis, unspecified site; Z88.8 Allergy status to other drugs, medicaments and biological substances; Z79.899 Other long term (current) drug therapy; Z86.718 Personal history of other venous thrombosis and embolism; Z68.43 Body mass index [BMI] 50.0-59.9, adult; Z87.01 Personal history of pneumonia (recurrent); Z98.890 Other specified postprocedural states; Z82.5 Family history of asthma and other chronic lower respiratory diseases; Z83.49 Family history of other endocrine, nutritional and metabolic diseases; Z82.49 Family history of ischemic heart disease and other diseases of the circulatory system
CPT/HCPCS: 36415; 37193; 80048; 85027; 85610; 85730; C1725; C1733; C1769; C1773; J2250; J2704; J3490; J7030; J7121; J0583; J1644; Q9967

== ENCOUNTER 2022-03-03 06:44 | Day surgery (SDC) | payer OTHER ==
[2022-03-03] MEDS ORDERED: SODIUM CHLORIDE 0.9% 1000 ML 1,000 ML ONE ×3 (07:27→10:29)
[2022-03-03] MEDS ORDERED: SODIUM CHLORIDE 0.9% 1000 ML 1,000 ML IV SCH (07:30)
[2022-03-03 07:57] LABS: Basophils % (Auto) 0.5 % (0.0-1.8); Eosinophils # (Auto) 0.2 K/mm3 (0.0-0.4); Eosinophils % (Auto) 3.7 % (0.0-4.3); Hematocrit 31.4 % (35.5-45.6); Hemoglobin 10.5 gm/dl (11.8-15.2); Lymphocytes # (Auto) 1.8 K/mm3 (1.2-5.4); Lymphocytes % (Auto) 36.2 % (13.4-35.0); Mean Corpuscular HGB Conc 34 % (32-34); Mean Corpuscular Volume 78 fl (84-94); Monocytes # (Auto) 0.5 K/mm3 (0.0-0.8); Monocytes % (Auto) 9.3 % (0.0-7.3); Platelet Count 354 K/mm3 (140-440); Red Blood Count 4.04 M/mm3 (3.65-5.03); Red Cell Distribution Width 17.3 % (13.2-15.2)
[2022-03-03] MEDS ORDERED: HEPARIN 10,000 UNITS/10 ML VIAL ONE (08:04)
[2022-03-03] MEDS ORDERED: HEPARIN/NS 5000 UNIT/500ML 0 ML IR ONE (08:04)
--- NOTE | 2022-03-03 08:18 | Anesthesia Consultation ---
Anesthesia Consult and Med Hx Date of service: 03/03/22 - Airway Anesthetic Teeth Evaluation: Good ROM Head & Neck: Adequate Mental/Hyoid Distance: Adequate Mallampati Class: Class III Intubation Access Assessment: Possibly Difficult - Pre-Operative Health Status ASA Pre-Surgery Classification: ASA3 Proposed Anesthetic Plan: MAC - Pulmonary Hx Smoking: Yes Hx Asthma: No Hx Respiratory Symptoms: Yes (post-nasal drip ) COPD: No Hx Pneumonia: Yes Hx Sleep Apnea: Yes (uses CPAP every night) - Cardiovascular System Hx Hypertension: No Hx Cardia Arrhythmia: No Hx Peripheral Vascular Disease: Yes (venous insufficiency, s/p LE venous thrombectomy, venous stents, IVC filter) - Central Nervous System Hx Back Pain: Yes Hx Psychiatric Problems: No - Gastrointestinal Hx Gastroesophageal Reflux Disease: No - Endocrine Hx Renal Disease: No Hx Liver Disease: No Hx Thyroid Disease: No - Hematic Hx Anemia: No Hx Sickle Cell Disease: No - Other Systems Hx Alcohol Use: No Hx Cancer: No Hx Obesity: Yes (BMI 51.5)
--- NOTE | 2022-03-03 08:22 | Anesthesia Day of Surgery ---
Anesthesia Day of Surgery - Day of Surgery Patient Examined: Yes Patient H&P Reviewed: Yes Patient is NPO: Yes
[2022-03-03 08:23] LABS: BUN/Creatinine Ratio 13; Blood Urea Nitrogen 12 mg/dL (9-20); Hemolysis Index 4
[2022-03-03 08:26] LABS: INR 1.02 (0.87-1.13)
[2022-03-03] MEDS ORDERED: SODIUM CHLORIDE 0.9% 50 ML ONE ×3 (08:26→10:48)
[2022-03-03] MEDS ORDERED: BIVALIRUDIN 250 MG INJ IV ONE ×2 (08:26→10:48)
[2022-03-03] MEDS ORDERED: SODIUM CHLORIDE 0.9% 100 ML ONE (08:26)
[2022-03-03 08:27] LABS: Partial Thromboplastin Time 32.7 Sec. (24.2-36.6)
[2022-03-03] MEDS ORDERED: WATER FOR INJ Sterile (PF) 10 ML ONE ×4 (08:27→10:51)
[2022-03-03] MEDS ORDERED: MIDAZOLAM 5 MG/5 ML INJ MDV IV ONE (08:28)
[2022-03-03] MEDS ORDERED: HYDROmorphone 1 MG/1 ML INJ ONE (08:45)
[2022-03-03] MEDS: BIVALIRUDIN 250 MG INJ IV ONE ×4 (09:02→10:07)
[2022-03-03] MEDS: LIDOCAINE (2%) 20 MG/1 ML VIAL 50 ML MDV INFILTRATI ONE ×2 (09:03→09:17)
[2022-03-03] MEDS ORDERED: KETAMINE/STERILE WATER 50 MG/ML SYRINGE ONE (10:20)
--- NOTE | 2022-03-03 11:34 | Short Stay Summary ---
Short Stay Documentation Date of service: 03/03/22 - History Principal diagnosis: Chronic left lower extremity DVT, retained IVC filter H&P: obtained from office - Allergies and Medications Current Medications: Allergies heparin Allergy (Verified 12/30/21 09:22) HIT Home Medications Medication Instructions Recorded Confirmed Last Taken Type Metformin HCl [metFORMIN ER 500 mg PO BID 04/02/20 03/03/22 03/02/22 History Osmotic] Apixaban [Eliquis] 5 mg PO BID #60 01/01/22 03/03/22 03/03/22 Rx HYDROcodone/APAP 5-325 [[place] 2 tab PO Q6H PRN 01/27/22 03/03/22 03/02/22 History 5-325 mg TAB] oxyCODONE /ACETAMINOPHEN [Percocet 1 tab PO Q4HR #30 tab 02/10/22 03/03/22 02/28/22 Rx 5/325] Active Medications Sodium Chloride (Nacl 0.9% 1000 Ml) 1,000 mls @ 42 mls/hr IV DIRECT DAXA Stop: 03/03/22 20:00 - Brief post op/procedure progress note Date of procedure: 03/03/22 Pre-op diagnosis: Chronic left lower extremity DVT, retained IVC filter Post-op diagnosis: same Procedure: See operative note Anesthesia: MAC Surgeon: HORACE STEEL Estimated blood loss: minimal Pathology: none Condition: stable - Disposition Condition at discharge: Good Disposition: 01 HOME / SELF CARE / HOMELESS Short Stay Discharge Plan Activity: advance as tolerated Weight Bearing Status: Weight Bear as Tolerated Diet: regular Wound: keep clean and dry, per your surgeon's advice Follow up with: ROMERO RIDDLE MD [Primary Care Provider] - 7 Days
--- NOTE | 2022-03-03 11:42 | Operative Report ---
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 The patient was brought to the angiographic suite and placed in supine position on the examination table. The patient's right neck, chest wall, bilateral groins were prepped and draped in the usual sterile fashion. 2% lidocaine was used for anesthesia at all access sites. Initial ultrasound evaluation of the right groin demonstrated a patent right common femoral vein. The patient's right common femoral vein was then accessed under ultrasound guidance using a 7 cm 18-gauge needle. A 0.035 guidewire advanced centrally easily and a 5 Malaysian sheath placed. Contrast was injected which demonstrates appropriate intravenous positioning. The patient's stents placed on the right from the IVC into the external iliac vein are widely patent. The patient's right internal jugular vein is widely patent under ultrasound. Access to the right internal jugular vein was performed using an 18-gauge 7 cm needle. A 0.035 guidewire was advanced centrally into the IVC under fluoroscopy and a 5 Malaysian sheath placed. Ultrasound evaluation of the left groin demonstrating stents into the left common femoral vein. Below this level, there is significant difficulty in visualizing the patient's venous system secondary to soft tissue. Ultimately, the proximal femoral vein was identified. Under ultrasound guidance, the proximal femoral vein was cannulated using a 7 cm 21-gauge needle. A 0.018 guidewire was advanced centrally under fluoroscopy and extended to the level of the stents. The needle was removed and a micro sheath placed. The guidewire and trocar were removed and contrast injected to the micro sheath. This demonstrates complete occlusion of the patient's previously placed stents on the left with massive collateral flow extending through the pelvis, anterior abdominal wall and paraspinal regions. Attempts to advance the guidewire into the stents from this access were unsuccessful Additional ultrasound imaging were obtained and the stents identified. Following anesthesia, a 7 cm 18-gauge needle was advanced through the interstices of the the stent in the common femoral vein. A 0.035 guidewire was then advanced through the needle and the needle exchanged for a micro sheath. Contrast was injected. This demonstrates occlusion of the previously placed stents. A 0.035 advantage wire was then advanced through the micro sheath and the micro sheath exchanged for a 5 Malaysian vascular sheath following dilatation. A vertebral catheter was then advanced over the advantage wire and attempts to cannulate the chronically occluded stents on the left was performed. Ultimately, this access was abandoned secondary to significant chronic thrombus within the previously placed stents. From the right neck approach, an MPA catheter followed by a coronary guide cath were utilized in an attempt to advance the wire from the IVC at the level of the filter into the stents on the left. Ultimately, this was unsuccessful secondary to chronic occlusion. The guidewire was then advanced on the right system easily. Following serial dilation over the guidewire under fluoroscopy, a 16 Malaysian Cook sheath was advanced over the guidewire under fluoroscopy to just proximal to the IVC filter. The trocar was removed. A 14 Malaysian Cook sheath was then advanced over the guidewire however, given the significant amount of extrinsic compression from the soft tissue the sheath would not advance through the 16 Malaysian sheath. Prior attempts to remove the IVC filter using conventional means were unsuccessful and no additional attempts were made during this visit as the 14 Malaysian sheath would not advance through the 16 Malaysian sheath precluding the use of forceps. At this point, the catheters, guidewires and sheaths were removed. Hemostasis was achieved in the groin access sites using manual compression and pressure dressing. Hemostasis was achieved at the right IJ puncture site using 4-0 Vicryl suture pursestring suture, manual compression and a pressure dressing. The patient tolerated the procedure well. There were no immediate postprocedure complications. Sedation was provided by anesthesia services. Continuous cardiopulmonary monitoring was utilized. Impression: 1) Angiography of the IVC, right lower extremity and left lower extremity demonstrating chronic occlusion of stents extending from the left common femoral vein to the distal IVC on the left. The patient has previously developed significant collateral flow allowing adequate drainage on the left.. Angiography on the right demonstrates the previously placed stents are widely patent with no restriction of flow. Patient does have a right venous stasis ulcer. Angiography of the IVC demonstrating an IVC filter with posterior tilt and embedding of the hook in the posterior wall. 2) The patient will be scheduled for additional ultrasound-guided evaluation of the right leg to determine if additional perforators are present which are feeding the ulcer.
[2022-03-03] MEDS ORDERED: ePHEDrine SULFATE 50 MG/1 ML INJ ONE (11:45)
[2022-03-03 13:34] VITALS: BP 119/64
--- NOTE | 2022-03-03 15:13 | Post Anesthesia Evaluation ---
- Post Anesthesia Evaluation Patient Participated: Yes Airway Patent: Yes Stable Respiratory Function: Yes Nausea/Vomiting: No Temp > 96.8F: Yes Pain Manageable: Yes Adequeate Hydration: Yes Anesthesia Complications: No
== END 2022-03-03 06:45 | disposition home or self-care (01) ==
LOC: CATHLABREC 06:44
PROVIDERS: ATTEND Radiology Diagnostic Radiology
DX: I87.1 Compression of vein (principal); E66.01 Morbid (severe) obesity due to excess calories; G47.30 Sleep apnea, unspecified; M19.90 Unspecified osteoarthritis, unspecified site; Z82.5 Family history of asthma and other chronic lower respiratory diseases; Z83.49 Family history of other endocrine, nutritional and metabolic diseases; Z88.8 Allergy status to other drugs, medicaments and biological substances; Z79.899 Other long term (current) drug therapy; Z68.43 Body mass index [BMI] 50.0-59.9, adult; Z86.718 Personal history of other venous thrombosis and embolism; Z87.01 Personal history of pneumonia (recurrent); Z98.890 Other specified postprocedural states; Z82.49 Family history of ischemic heart disease and other diseases of the circulatory system
CPT/HCPCS: 36012; 36415; 75822; 75825; 80048; 85025; 85610; 85730; C1751; C1769; C1773; C1887; C1894; J0583; J1170; J2250; J2704; J3490; J7030; J7121; J1644; Q9967